=== PATIENT | female | born 1965 | race Caucasian/White ===

== ENCOUNTER 2021-01-01 14:32 | Outpatient (CLI) | payer OTHER, SELFPAY ==
--- NOTE | ~2021-01-01 | MR_ITS ---
EXAMINATION: MR knee RT wo con DATE: 01/01/2021 15:57 INDICATION: Right knee mass at the lower leg pain TECHNIQUE: Magnetic resonance imaging (MRI) of the right knee was performed without intravenous contr ast. Sequences included coronal PD-weighted FSE, coronal PD-weighted FS FSE, coronal T1-weighted FSE , sagittal T2-weighted FSE, sagittal PD-weighted FS FSE, axial PD-weighted fat saturated FSE and axia l PD-weighted FSE. COMPARISON: Right knee radiographs dated 12/19/2020 FINDINGS: Medial compartment: Medial meniscus is normal. Shallow chondral ulceration with subtle underlying cortical irregularity a t the lateral aspect of the anterior weightbearing medial femoral condyle. Remaining cartilage appear s normal. Lateral compartment: Lateral meniscus is normal. Deep chondral fissuring without degenerative subchondral changes at the p osterior medial aspect of the lateral tibial plateau. Remaining cartilage appears normal. Patellofemoral compartment: Cartilage loss appears to involve greater than 50% the cartilage thickness and with chondral surface irregularity and fissuring and with small regions of increased signal in the underlying subarticular marrow at the medial facet, apical ridge and medial side of the lateral facet. Trochlear cartilage is relatively preserved. Ligaments and tendons: Anterior and posterior cruciate ligaments are normal. There is thickening and mild increased signal a t the proximal aspect of the medial collateral ligament and fibular collateral ligament without surro unding edema consistent with mild scarring related to chronic sprains. Moderate tendinopathy and smal l partial-thickness tear at the lateral epicondylar insertion of the popliteus tendon. The extensor m echanism is normal. The visualized medial and lateral hamstring tendons as well as the iliotibial ban d are normal. Fluid: Physiologic amount of fluid in the joint space. No loose osteochondral bodies identified. Mild edema of the subcutaneous fat overlying the anterior tibial tuberosity without discrete bursal fluid collec tion. Osseous/other: Mild red marrow reexpansion in the metaphyseal regions of the distal femur and proximal tibia. No fra cture or pathologic marrow replacing process. Very small osseous excrescence along the lateral metaph yseal region of the proximal right tibia at the anterior margin of the proximal tibiofibular articula tion. This could represent an enthesophyte at the proximal footplate of the extensor digitorum longus or anterior ligament of the head of the fibula or potentially a very small osteochondroma although n o definitive cartilage cap is appreciated. Further favoring enthesophyte over osteochondroma is that there does not appear to be marrow within the majority of the excrescence as delineated on the plain radiographs. No abnormal soft tissue masses identified. IMPRESSION: 1. Moderate tendinopathy and small partial-thickness tear at the femoral insertion of the popliteus t endon. 2. Mild scarring suggestive of chronic sprains at the proximal aspect the medial and fibular collater al ligaments. 3. Mild tricompartmental osteoarthritis with small regions of high-grade chondromalacia at the patell a along the anterior weightbearing medial femoral condyle. 4. Small osseous excrescence at the proximal tibia near the anterior margin of the proximal tibiofibu lar articulation most likely small enthesophyte versus less likely a small osteochondroma. Reviewed, dictated and finalized at location A. IMPRESSION: 1. Moderate tendinopathy and small partial-thickness tear at the femoral insert ion of the popliteus tendon. 2. Mild scarring suggestive of chronic sprains at the proximal aspect the media l and fibular collateral ligaments
== END 2021-01-01 14:33 | disposition home or self-care (01) ==
PROVIDERS: PCP Family Medicine; Visit Provider Nurse Practitioner Family
DX: M22.2X1 Patellofemoral disorders, right knee (principal); R22.41 Localized swelling, mass and lump, right lower limb; M25.561 Pain in right knee; M22.2X2 Patellofemoral disorders, left knee; M76.891 Other specified enthesopathies of right lower limb, excluding foot; S86.821A Laceration of other muscle(s) and tendon(s) at lower leg level, right leg, initial encounter; M17.11 Unilateral primary osteoarthritis, right knee; M94.261 Chondromalacia, right knee; M89.9 Disorder of bone, unspecified
CPT/HCPCS: 73721

== ENCOUNTER 2021-02-04 15:26 | Outpatient (CLI) | payer OTHER, SELFPAY ==
--- NOTE | ~2021-02-04 | MM_ITS ---
EXAMINATION: MM screening [place] [facility] w [facility] HISTORY: Screening mammogram TECHNIQUE: Craniocaudal and mediolateral oblique 3-D tomosynthesis images were obtained and synthetic 2-D images were generated. CAD analysis was submitted and interpreted. COMPARISON: 01/13/2019, 01/21/2017, 06/2014 bilateral digital screening mammogram examinations BREAST PARENCHYMAL COMPOSITION: There are scattered areas of fibroglandular density. FINDINGS: There is no evidence of suspicious mass, calcification, or architectural distortion to sugg est malignancy in either breast. There has been no suspicious interval change. IMPRESSION: 1. No mammographic evidence of malignancy. 2. Recommend routine screening mammography in one year. BI-RADS Category 1: Negative Reviewed, dictated and finalized at location A.
== END 2021-02-04 15:27 | disposition home or self-care (01) ==
LOC: ANHIMG 15:30
PROVIDERS: PCP Family Medicine; Visit Provider Family Medicine
DX: Z12.31 Encounter for screening mammogram for malignant neoplasm of breast (principal)
CPT/HCPCS: 77063; 77067

== ENCOUNTER 2022-03-19 17:23 | Outpatient (CLI) | payer OTHER, SELFPAY ==
--- NOTE | ~2022-03-19 | MM_ITS ---
EXAMINATION: MM screening [facility] BI w yves HISTORY: Screening mammogram TECHNIQUE: Craniocaudal and mediolateral oblique 3-D tomosynthesis images were obtained and synthetic 2-D images were generated. CAD analysis was submitted and interpreted. COMPARISON: 02/04/2021, 01/13/2019, 01/21/2017 BREAST PARENCHYMAL COMPOSITION: There are scattered areas of fibroglandular density. FINDINGS: There is no suspicious mass, calcification, or architectural distortion to suggest malignan cy in either breast. There has been no suspicious interval change. IMPRESSION: 1. No mammographic evidence of malignancy. 2. Recommend routine screening mammography in one year. BI-RADS Category 1: Negative Reviewed, dictated and finalized at location A.
== END 2022-03-19 17:24 | disposition home or self-care (01) ==
PROVIDERS: PCP Family Medicine; Visit Provider Student in an Organized Health Care Education/Training Program
DX: Z12.31 Encounter for screening mammogram for malignant neoplasm of breast (principal)
CPT/HCPCS: 77063; 77067

== ENCOUNTER 2025-04-16 07:59 | Outpatient (CLI) | payer OTHER, SELFPAY ==
--- NOTE | ~2025-04-16 | DEXA_ITS ---
Bone Density Report Name: BERNICE PULIDO Age: 60 Sex: Female Ethnicity: White Date of : 1965 Indication: postmenopausal; screening for osteoporosis; Referring Provider: SARAH, [facility] Study: Bone densitometry was performed. Exam Date: April 16, 2025 Accession number: [id number] Bone Density: Region BMD T-score Z-score Classification AP Spine(L1, L2, L3) 1.133 1.0 2.5 Normal Femoral Neck (Left) 0.820 -0.3 1.1 Normal Total Hip (Left) 1.139 1.6 2.6 Normal Femoral Neck (Right) 0.794 -0.5 0.8 Normal Total Hip (Right) 1.092 1.2 2.2 Normal Total Hip Mean 1.116 1.4 2.4 Normal World Health Organization criteria for BMD impression classify patients as: Normal (T-score at or above -1.0), Osteopenia (T-score between -1.0 and -2.5), or Osteoporosis (T-score at or below -2.5). 10-year Fracture Risk: FRAX not reported because: All T-scores for Spine Total, Hip Total, Femoral Neck at or above -1.0 Clinical Information Provided by Patient: Has used the following medications: Vitamin D Patient maximum height was 60.5 Menopause Age: 44 No regular weight bearing exercise Drinks caffeinated beverages Onset of menses at age 12 Number of children 2 Missed period for more than 6 months in a row Impression: The patient has normal bone mass. Discussion: BONE DENSITY IS ABOVE THE MINIMUM DESIRABLE LEVEL AT ALL SKELETAL SITES TESTED. This patient?s bone mineral density is above the minimum desirable level (T-score -1.0 or better) at all sites measured. The patient should follow a healthful lifestyle (good nutrition with adequate calcium and vitamin D, and appropriate weight-bearing exercise). Follow-Up: Consider repeating this study in 5 years or sooner if there is some new clinical indication. Reported by: KAI on 04/16/2025 8:56:00 AM. Reviewed, dictated and finalized at location A.
--- OUTSIDE RECORDS SUMMARY | 2025-04-16 08:03 | XMS_ITS | Clinical Summary ---
Author Organization [facility] Address [address] [place] [address] Care Team Providers Care Facilities Painter Name Role Phone Matilde Taylor RN Primary Care Provider Un available Source Comments [facility],non-owned Affiliates and Associated Physician Practices is amultiple site organization consisting of ambulatory clinics and hospital sitesin [place], [place], [place] and [place]. This disclosure is being madepursuant to the Care Everywhere program and may not contain all information available regarding this patient. Last updated 18.[facility] Allergies No known active allergies Medications * Be aware that medications may not be up to date on this document. Alwaysverify current medications with the patient. SERTRALINE HCL PO Ac tive ARIPiprazole (ABILIFY PO) Active DICLOFENAC PO Active Zolpidem Tartrate (AMBIEN PO) Active OMEPRAZOLE PO Active Social History Tobacco Use Types Packs/Day Years Used Date Smoking Tobacco: Never Smokeless Tobacco: Never Tobacco Cessation:Counseling Given: No Alcohol Use Standard Drinks/Week Comments No 0 (1 standard drink = 0.6 oz pur e alcohol) Comments No Sex and Gender Information Value Date Recorded Sex Assigned at Not on file Legal Sex Female 2:29 PM CDT Gender Identity Not on file Sexual Orientation Not on file Last Filed Vital Signs Vital Sign Reading Time Taken Comments Blood Pressure 128/80 07/11/2017 11:58 AM CDT Pulse 94 07/11/2017 11:58 AM CDT Temperature 36.8 C (98.3 F) 07/11/2017 11:58 AM CDT Respiratory Rate 20 07/11/2017 11:58 AM CDT Oxygen Saturation 95% 07/11/2017 11:58 AM CDT Inhaled Oxygen Concentration - - Weight 99.8 kg (220 lb) 07/11/2017 11:58 AM CDT Height 154.9 cm (5' 1) 07/11/2017 11:58 AM CDT Body Mass Index 41.57 07/11/2017 11:58 AM CDT Plan of Treatment Health Maintenance Due Date Last Done Comments COLOGUARD (AGES 45-75) - COL ON CA SCREENING 1964 COLON MONITORING 1964 COLONOSCOPY - COLON CA SCREENING 1964 CT COLONOGRAPHY - COLON CA SCREENING 1964 Colorectal Cancer Screening 1964 FIT - COLON CA SCREENING 1964 FLEX SIG - COLON CA SCREENING 1964 LIPID TESTING 1964 MAMMOGRAM 1964 HIV SCREENING 1979 HEPATITIS C SCREENING 04/03/1982 DTAP/TDAP/TD VACCINES (1 - Tdap) 1983 PAP SMEAR 1985 PNEUMOCOCCAL VACCINE 50+ (1 of 1 - PCV) 2014 ZOSTER VACCINE (1 of 2) 2014 SCREENING FOR DIABETES 07/11/2017 Respiratory Syncytial Virus (RSV) Vaccine Pt: or over 60 yrs (1 - Risk 60-74 years 1-dose series) 2024 COVID-19 VACCINE (1 - 2023-2 5 season) 2024 DEPRESSION SCREENING 10/11/2024 INFLUENZA VACCINE (Season Ended) 2025 HEPATITIS B VACCINE Aged Out No longe r eligible based on patient's age to complete this topic HIB VACCINE Aged Out No longer eligi ble based on patient's age to complete this topic HPV VACCINE Aged Out No longer eligi ble based on patient's age to complete this topic MENINGOCOCCAL (Group B) VACC INE SHARED DECISION-MAKING Aged Out No longer eligibl e based on patient's age to complete this topic MENINGOCOCCAL GROUPS A/C/Y/W VACCINE Aged Out No longer eligible b ased on patient's age to complete this topic Insurance [employer] Care Teams Facilities Painter Relationship Specialty Start Date End Date Matilde Taylor, RN PCP - General 07/11/17
--- OUTSIDE RECORDS SUMMARY | 2025-04-16 08:03 | XMS_ITS | Encounter Summary ---
Author Organization [facility] Address [address] [place] [address] Care Team Providers Care Ditching Machine Engineer Name Role Phone Homer Segura MD Primary Care Provider [phone] Encounter Details Date Type Department Care Team (Late st Contact Info) Description 09/24/2016 Orders Only [facility] ProviderWillie MD [address] [place] [id number] Social History Tobacco Use Types Packs/Day Years Used Date Smoking Tobacco: Never Assessed Comments Unknown Sex and Gender Information Value Date Recorded Sex Assigned at Not on file 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 Historical Provider [facility] LEEANNE CHAVES Final Result documented in this encounter Visit Diagnoses Not on filedocumented in this encounter Care Teams Ditching Machine Engineer Relationship Specialty Start Date End Date Homer Segura MD [address] [place] [address] [place] [address] PCP - General Family Medicine 12/24/23 documented as of this encounter
--- OUTSIDE RECORDS SUMMARY | 2025-04-16 08:03 | XMS_ITS ---
Author Organization Unknown Medications Medication Instructions Effective Dates (start - stop) Status - - Compl eted aripiprazole 2 MG Oral Tablet 2023-12-19 00:00:00Z - Completed aripiprazole 2 MG Oral Tablet 2023-07-01 00:00:00Z - Completed ergocalciferol 1.25 MG Oral Capsule - Completed aripiprazole 2 MG Oral Tablet 2023-08-07 00:00:00Z - Completed ergocalciferol 1.25 MG Oral Capsule - Completed zolpidem tartrate 10 MG Oral Tablet - Completed eszopiclone 2 MG Oral Tablet [id number] 0:00:00Z - Completed diclofenac sodium 75 MG Ivda yed Release Oral Tablet - Completed allopurinol 100 MG Oral Tablet 2023-05-19 T00:00:00Z - Completed icosapent ethyl 1000 MG Oral Capsule [Vascepa] - Completed aripiprazole 2 MG Oral Tablet 2023-06-06 00:00:00Z - Completed sertraline 100 MG Oral Tablet 2024-02-28 00:00:00Z - Completed - - Compl eted nystatin 100 UNT/MG Topical Powder [Nystop] - Completed empagliflozin 25 MG Oral Tab let [Jardiance] - Completed aripiprazole 2 MG Oral Tablet 2023-10-25 00:00:00Z - Completed cyclobenzaprine hydrochlorid e 10 MG Oral Tablet - Completed lisinopril 2.5 MG Oral Tablet 2023-11-07 00:00:00Z - Completed diclofenac sodium 75 MG Vida yed Release Oral Tablet - Completed 3 ML semaglutide 1.34 MG/ML Pen Injector [Ozempic] - Completed diclofenac sodium 75 MG Vida yed Release Oral Tablet - Completed - - Compl eted sitagliptin 100 MG Oral Tabl et [Januvia] - Completed pantoprazole 40 MG Delayed R elease Oral Tablet - Completed diclofenac sodium 75 MG Vida yed Release Oral Tablet - Completed zolpidem tartrate 10 MG Oral Tablet - Completed allopurinol 100 MG Oral Tablet 2023-11-07 T00:00:00Z - Completed lisinopril 2.5 MG Oral Tablet 2023-11-08 00:00:00Z - Completed - - Compl eted allopurinol 100 MG Oral Tablet 2023-11-08 T00:00:00Z - Completed empagliflozin 25 MG Oral Tab let [Jardiance] - Completed diclofenac sodium 75 MG Vida yed Release Oral Tablet - Completed allopurinol 100 MG Oral Tablet 2024-02-06 T00:00:00Z - Completed icosapent ethyl 1000 MG Oral Capsule [Vascepa] - Completed aripiprazole 2 MG Oral Tablet 2024-04-21 00:00:00Z - Completed ezetimibe 10 MG Oral Tablet [id number] :00:00Z - Completed gabapentin 300 MG Oral Capsule 2024 T00:00:00Z - Completed ezetimibe 10 MG Oral Tablet [id number] :00:00Z - Completed diclofenac sodium 75 MG Vida yed Release Oral Tablet - Completed nystatin 100 UNT/MG Topical Powder 00:00:00Z - Completed gabapentin 300 MG Oral Capsule 2024-01-06 T00:00:00Z - Completed rosuvastatin calcium 20 MG O ral Tablet - Completed rosuvastatin calcium 20 MG O ral Tablet - Completed levocetirizine dihydrochlori de 5 MG Oral Tablet - Completed nystatin 100 UNT/MG Topical Powder [Nystop] - Completed rosuvastatin calcium 20 MG O ral Tablet - Completed zolpidem tartrate 10 MG Oral Tablet - Completed sertraline 100 MG Oral Tablet 2024-03-21 00:00:00Z - Completed - - Compl eted sertraline 100 MG Oral Tablet 2023-07-08 00:00:00Z - Completed lisinopril 2.5 MG Oral Tablet 2023-08-13 00:00:00Z - Completed ezetimibe 10 MG Oral Tablet [id number] :00:00Z - Completed sertraline 100 MG Oral Tablet 2024-01-29 00:00:00Z - Completed levocetirizine dihydrochlori de 5 MG Oral Tablet - Completed amoxicillin 875 MG / clavula juve 125 MG Oral Tablet - Completed zolpidem tartrate 10 MG Oral Tablet - Completed diclofenac sodium 75 MG Vida yed Release Oral Tablet - Completed nystatin 100 UNT/MG Topical Powder 00:00:00Z - Completed gabapentin 100 MG Oral Capsule 2023-12-19 T00:00:00Z - Completed aripiprazole 2 MG Oral Tablet 2024-02-20 00:00:00Z - Completed - - Compl eted pantoprazole 40 MG Delayed R elease Oral Tablet - Completed ergocalciferol 1.25 MG Oral Capsule - Completed aripiprazole 2 MG Oral Tablet 2023-11-19 00:00:00Z - Completed rosuvastatin calcium 20 MG O ral Tablet - Completed pantoprazole 40 MG Delayed R elease Oral Tablet - Completed - - Compl eted sertraline 100 MG Oral Tablet 2023-10-31 00:00:00Z - Completed diclofenac sodium 75 MG Vida yed Release Oral Tablet - Completed aripiprazole 2 MG Oral Tablet 2024-03-21 00:00:00Z - Completed zolpidem tartrate 10 MG Oral Tablet - Completed diclofenac sodium 75 MG Vida yed Release Oral Tablet - Completed nystatin 100 UNT/MG Topical Powder [Nystop] - Completed aripiprazole 2 MG Oral Tablet 2023-09-04 00:00:00Z - Completed sitagliptin 100 MG Oral Tabl et [Januvia] - Completed prednisone 20 MG Oral Tablet [id number] 0:00:00Z - Completed pantoprazole 40 MG Delayed R elease Oral Tablet - Completed ezetimibe 10 MG Oral Tablet [id number] :00:00Z - Completed methocarbamol 500 MG Oral Tablet 00:00:00Z - Completed sitagliptin 100 MG Oral Tabl et [Januvia] - Completed lisinopril 2.5 MG Oral Tablet 2024-05-01 00:00:00Z - Completed sertraline 100 MG Oral Tablet 2024-04-21 00:00:00Z - Completed empagliflozin 25 MG Oral Tab let [Jardiance] - Completed icosapent ethyl 1000 MG Oral Capsule [Vascepa] - Completed aripiprazole 2 MG Oral Tablet 2023-07-03 00:00:00Z - Completed - - Compl eted aripiprazole 2 MG Oral Tablet 2023-09-29 00:00:00Z - Completed aripiprazole 2 MG Oral Tablet 2024-01-23 00:00:00Z - Completed lisinopril 2.5 MG Oral Tablet 2024-02-06 00:00:00Z - Completed nystatin 100 UNT/MG Topical Powder [Nystop] - Completed levocetirizine dihydrochlori de 5 MG Oral Tablet - Completed aripiprazole 2 MG Oral Tablet 2023-08-05 00:00:00Z - Completed nystatin [id number] UNT/ML Topic al Cream - Completed sertraline 100 MG Oral Tablet 2023-10-02 00:00:00Z - Completed diclofenac sodium 75 MG Vida yed Release Oral Tablet - Completed pantoprazole 40 MG Delayed R elease Oral Tablet - Completed lisinopril 2.5 MG Oral Tablet 2023-05-19 00:00:00Z - Completed diclofenac sodium 75 MG Vida yed Release Oral Tablet - Completed Patient Care team information Name Category Status Period Participants - - Proposed period not known -
--- OUTSIDE RECORDS SUMMARY | 2025-04-16 08:03 | XMS_ITS | Clinical Summary ---
Author Organization [facility] Address [address] [place] [address] Care Team Providers Care Brand Advisor Name Role Phone Homer Segura MD Primary Care Provider [phone] Allergies No known active allergies Medications methocarbamoL (ROBAXIN) 500 mg tablet Take 1 tablet (500 mg total) by mouth 2 (two) times a day 10 tablet 12/24/2023 Active Active Problems No known active problems Social History Tobacco Use Types Packs/Day Years Used Date Smoking Tobacco: Never Assessed Personal Safety Answer Date Recorded Have you ever been in or are you currently in a harmful physical or emotional relationship or is someone making you feel afraid or unsafe? 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 Gender Identity Not on file Sexual Orientation Not on file Last Filed Vital Signs Vital Sign Reading Time Taken Comments Blood Pressure 99/56 12/24/2023 1:35 PM CDT Pulse 61 12/24/2023 1:35 PM CDT Temperature 36.4 C (97.5 F) 12/24/2023 1:35 PM CDT Respiratory Rate 18 12/24/2023 1:35 PM CDT Oxygen Saturation 99% 12/24/2023 1:35 PM CDT Inhaled Oxygen Concentration - - Weight 94 kg (207 lb 3.7 oz) 12/24/2023 1:35 PM CDT Height 152.4 cm (5') 12/24/2023 1:35 PM CDT Body Mass Index 40.47 12/24/2023 1:35 PM CDT Plan of Treatment Health Maintenance Due Date Last Done Comments Cervical Cancer Screening 1964 Colon Cancer Screening-Colonoscopy 1964 Depression Screening 1964 Hepatitis C Screening 1964 Hepatitis B Screening 1982 Regular Well Visit/Exam 18-64 1982 Zoster Vaccine (1 of 2) 2014 Breast Cancer Screening-Mammogram 03/20/2023 03/20/2022, 02/04/2021 Covid-19 Vaccine ( season) 2024 08/15/2021, 12/30/2020, 11/27/2020 Influenza Vaccine (#1) 2025 , 07/20/2019, 07/11/2016, Additional history exists DTaP/Tdap/Td Vaccine (3 - Td or Tdap) 08/24/2033 08/24/2023, 01/23/2013 Pneumococcal vaccine <65 Aged Out No longer eligible based on patient's age to complete this topic Insurance [facility] [id number] Care Teams Brand Advisor Relationship Specialty Start Date End Date Homer Segura MD [address] [place] [address] PCP - General Family Medicine 12/24/23
--- OUTSIDE RECORDS SUMMARY | 2025-04-16 08:03 | XMS_ITS | Data Portability ---
Author Organization [place] [facility] [employer], Main Office Address [address] [place] [address] Care Team Providers Care Wire Spiral Binder Name Role Phone HOMER SEGURA Primary Care Provider HOMER SEGURA Referring Provider HOMER SEGURA Primary Care Provider [phone] Assessment Encounter Date Assessment Date Assessment LastModified by Organization Details LastModified Time 12/27/2024 12/27/2024 59 yo F with - MICROSCOPIC HEMATURIA, new - CHRONIC LOW BACK PAIN - DM II - ANEMIA - DM NEUROPATHY - FIBROMYALGIA - POLYMYALGIA RHEUMATICA - POLYARTHROPATHY - GOUT - PLANTER FASCITIS - HTN (For DM protection) - HTG - HLD - GERD - HIATAL HERNIA - IBS-D - DEPRESSION - INSOMNIA - VIT D DEFICIENCY - OBESITY III - H/O VIT B12 DEFICIENCY - H/O CHOLECYSTECTOMY (1997) - H/O PUD HbA1C: 6.1(05/19/18) - 6.3(09/21/18) - 4.9(01/11/19) - 6.3(06/27/19) - 6.5(01/26/20) - 6.7(05/30/20) - 7.4(02/03/21) - 6.7(05/02/21) - 6.9(08/06/21) - 6.6(11/18/21) - 6.1(01/30/22) - 6.3(07/16/22) - 6.5(10/29/22) - 6.7(03/15/23) - 6.7(06/16/23) - 6.5(08/24/23) - 6.1(03/02/24) - 5.7(08/28/24) Annual labs: 08/28/24. X-ray foot: 05/09/24. Annual labs: 08/24/23. Annual labs: 07/16/22. Annual labs, KARLENE, ESR: 08/06/21. Annual labs: 07/24/20. Annual labs: 06/27/19. RA work up: 05/19/18. Annual labs: 05/19/18. Sleep study: 2-3 yrs ago, Neg as per pt. Wt: 229(06/28/18) - 228(08/09/18) - 225(09/21/18) - 224(11/22/18) [Stopped] Wt: 231(01/11/19) - 230(03/13/19) [Stopped] D/w pt in detail about her conditions, recent labs & imagines and further plan of care. All meds verified with pt. Meds as directed. Heat pack as directed prn. Advised pt to avoid any Aspirin/NSAIDs due to her PUD. Diet and exercise explained in detail. Pt has tried Phentermine and got s/e from it. Educated about different wt loss options for her. F/u with Hemat as per schedule. F/u with Rheumat as per schedule. Cont f/u with Ortho as per schedule. Cont f/u with Hand surgeon at [place] as per schedule. Cont f/u with Psych at [place] as per schedule. Cont f/u with Gyne at [place] as per schedule. Cont f/u with Supervisor Ticket Sales at as per schedule. Cont f/u with GI as per schedule. Cont f/u with Optho as per schedule. Pt has seen Wt loss clinic in the past. Advised pt to do more work up for Anemia/refer to Hemat; but pt declined. Advised pt to refer to Wt loss clinic; but pt declined. Pt's insurance did not approve Livalo. Pt got s/e from Lyrica, Metformin, Phentermine, Rybelsus, Trulicity in the past. HM: WWE - 09/03, normal as per pt. Cont f/u with Gyne as per schedule. Mammo - 2022, normal. Ordered by her Gyne. Ordered again. DEXA - Never. Ordered again. EGD & Colonoscopy - 2021, ulcer ++. Cont f/u with GI as per schedule. Tdap - 08/24/23. Flu - 08/03. Pt gets at her work. Shingrix - At pharmacy/HD. F/u in 3 months. A1c in 04/04. Annual labs in 09/04. [email or web address] Not available 12/27/2024 09:34:09 03/29/2025 03/29/2025 59 yo F with - LUMBAR SPONDYLOSIS - CHRONIC LOW BACK PAIN - FIBROMYALGIA - POLYMYALGIA RHEUMATICA - POLYARTHROPATHY - GOUT - PLANTER FASCITIS - HTN (For DM protection) - HTG - HLD - DM II - DM NEUROPATHY - ANEMIA - GERD - HIATAL HERNIA - IBS-D - DEPRESSION - INSOMNIA - VIT D DEFICIENCY - MICROSCOPIC HEMATURIA - OBESITY III - H/O VIT B12 DEFICIENCY - H/O CHOLECYSTECTOMY (1997) - H/O PUD HbA1C: 6.1(05/19/18) - 6.3(09/21/18) - 4.9(01/11/19) - 6.3(06/27/19) - 6.5(01/26/20) - 6.7(05/30/20) - 7.4(02/03/21) - 6.7(05/02/21) - 6.9(08/06/21) - 6.6(11/18/21) - 6.1(01/30/22) - 6.3(07/16/22) - 6.5(10/29/22) - 6.7(03/15/23) - 6.7(06/16/23) - 6.5(08/24/23) - 6.1(03/02/24) - 5.7(08/28/24) - 5.5(03/27/25) Annual labs: 08/28/24. X-ray foot: 05/09/24. Annual labs: 08/24/23. Annual labs: 07/16/22. Annual labs, KARLENE, ESR: 08/06/21. Annual labs: 07/24/20. Annual labs: 06/27/19. RA work up: 05/19/18. Annual labs: 05/19/18. Sleep study: 2-3 yrs ago, Neg as per pt. Wt: 229(06/28/18) - 228(08/09/18) - 225(09/21/18) - 224(11/22/18) [Stopped] Wt: 231(01/11/19) - 230(03/13/19) [Stopped] D/w pt in detail about her conditions, recent labs & imagines and further plan of care. All meds verified with pt. Meds as directed. Cont heat pack as directed prn. Advised pt to avoid any Aspirin/NSAIDs due to her PUD. Diet and exercise explained in detail. Pt has tried Phentermine and got s/e from it. Educated about different wt loss options for her. F/u with Hemat as per schedule. F/u with Rheumat as per schedule. Cont f/u with Pain clinic at [place] as per schedule. Cont f/u with Ortho as per schedule. Cont f/u with Hand surgeon at [place] as per schedule. Cont f/u with Psych at [place] as per schedule. Cont f/u with Gyne at [place] as per schedule. Cont f/u with Supervisor [employer] Sales at as per schedule. Cont f/u with GI as per schedule. Cont f/u with Optho as per schedule. Pt has seen Wt loss clinic in the past. Advised pt to do more work up for Anemia/refer to Hemat; but pt declined. Advised pt to refer to Wt loss clinic; but pt declined. Pt's insurance did not approve Livalo. Pt got s/e from Lyrica, Metformin, Phentermine, Rybelsus, Trulicity in the past. HM: WWE - 09/03, normal as per pt. Cont f/u with Gyne as per schedule. Mammo - 2022, normal. Ordered by her Gyne. Ordered again. DEXA - Never. Ordered again. EGD & Colonoscopy - 2021, ulcer ++. Cont f/u with GI as per schedule. Tdap - 08/24/23. Flu - 08/03. Pt gets at her work. Shingrix - At pharmacy/HD. F/u in 3-4 months. Annual labs in 09/04. [email or web address] Not available 03/29/2025 09:31:31 Plan of Treatment Reminders Order Date Submit Date Provider Last Modified By Organization Details Last Modified Time Details Appointments Any 15 2024 08:00A M Homer Segura MD Not available Not available Not available Lab culture, urine 2024 025 [facility] (Lab), [address] [place], [address], 10/19/2024 10:41:34 Referral pain managemen t referral - Please call patient to schedule an appointme nt. Thank you. 2024 025 [facility], [address], [place], [address], 04/02/2025 10:12:56 Procedures None recorded. Surgeries None recorded. Imaging XR, lumbosacr al spine, 4 or more view 2024 025 [facility], [address] [place], [address], 02/14/2025 08:15:19 XR, sacroilia c joint(s), 3 or more view 2024 025 [facility], [address] [place], [address], 02/14/2025 08:14:35 Medication Orders tizanidin e 4 mg tablet 2024 025 [facility]25792, [address], [place], [id number], 03/29/2025 09:23:42 levocetir izine 5 mg tablet 2024 025 [facility] #46719, [address], [place], [id number], 03/29/2025 09:23:42 Xifaxan 550 mg tablet 2024 025 [facility] #51803, [address], [place], [id number], 03/29/2025 09:29:46 gabapenti n 300 mg capsule 2024 025 [facility] #42609, [address], [place], [id number], 03/29/2025 09:23:41 allopurin ol 100 mg tablet 2024 [facility] #39936, [address], [place], [id number], 03/29/2025 09:23:46 ezetimibe 10 mg tablet 2024 [facility] #81044, [address], [place], [id number], 03/29/2025 09:23:43 rosuvasta tin 20 mg tablet 2024 025 [facility] #45908, [address], [place], [id number], 03/29/2025 09:23:44 Jardiance 25 mg tablet 2024 025 [facility] #80633, [address], [place], [id number], 03/29/2025 09:23:43 Mounjaro 15 mg/0.5 mL subcutane ous pen injector 2024 025 [facility] #93860, [address], [place], [id number], 03/29/2025 09:23:44 pantopraz ole 40 mg tablet,de layed release 2024 [facility] #53528, [address], [place], [id number], 03/29/2025 09:23:44 tizanidin e 4 mg tablet [email or web address] [facility]77559, [address], [place], [id number], 02/27/2025 12:19:32 lidocaine 5 % topical patch 2024 [facility] #45229, [address], [place], [id number], 02/27/2025 12:19:03 gabapenti n 300 mg capsule 2024 [facility] #40660, [address], [place], [id number], 02/27/2025 12:18:59 tizanidin e 4 mg tablet 2024 [facility] #12794, [address], [place], [id number], 02/13/2025 15:50:26 tizanidin e 2 mg tablet [address] [facility] #14563, [address], [place], [id number], 02/13/2025 15:59:11 levocetir izine 5 mg tablet 2024 025 [facility] #19727, [address], [place], [id number], 12/27/2024 09:26:57 gabapenti n 300 mg capsule 2024 [facility] #83265, [address], [place], [id number], 12/27/2024 09:27:29 allopurin ol 100 mg tablet 2024 [facility] #78308, [address], [place], [id number], 12/27/2024 09:26:56 ezetimibe 10 mg tablet 2024 [facility] #86570, [address], [place], [id number], 12/27/2024 09:26:57 rosuvasta tin 20 mg tablet 2024 [facility] #79208, [address], [place], [id number], 12/27/2024 09:26:57 Jardiance 25 mg tablet 2024 [facility] #43017, [address], [place], [id number], 12/27/2024 09:26:56 Mounjaro 15 mg/0.5 mL subcutane ous pen injector 2024 025 [email or web address] [facility] #90376, [address], [place], [id number], 12/27/2024 09:33:35 pantopraz ole 40 mg tablet,de layed release 2024 [facility] #96794, [address], [place], [id number], 12/27/2024 09:26:58 Patient TargetsNo targets recorded. Patient Instructions Encounter Date Encounter Id Patient Instructions Last Modified By Organization Details Last Modified Time 10/18/2024 [id number] 1. We will send her to the lab to undergo a microscopic urinalysis 2. If she has 3 or more red blood cells per high-powered field then she is considered possible increased risk. 3. If she has greater than 10 red blood cells then she has higher risk [email or web address] Not available 10/18/2024 12:27:52 12/27/2024 [id number] When You Want to Lose Weight: Care Instructions [email or web address] Not available 12/27/2024 09:26:47 03/29/2025 [id number] When You Want to Lose Weight: Care Instructions [email or web address] Not available 03/29/2025 09:23:33 Reason for Referral Pain Management Referral for Lumbar spondylosis Chronic low back pain, lumbar spondylosis, PT done last year. Please call patient to schedule an appointment. Thank you. Referring Physician: Homer Segura, Family Medicine, Encounter Date: 02/27/2025 Results Created Date Observation Date Name Description Value Unit Range Abnormal Flag Note LastModifiedBy Organization Detail LastModifiedTime 03/27/2003/28/2025 HEMOG LOBIN A1C hemoglobin A1C 5.5 %_of_ total _HGB <5.7 normal For the purpo se of adal deal for the prese nce of diabe sandy: <5.7% Consi stent with the absen ce of diabe sandy 5.7-6 .4% Consi stent with incre ased risk for diabe sandy (pred iabet es) > or =6.5% Consi stent with diabe sandy This assay resul t is consi stent with a decre ased risk of diabe sandy. Curre ntly, no conse nsus exist s sophie milner use of hemog lobin A1c for diagn osis of diabe sandy in child toy[place]. Accor ding to Ameri can Diabe sandy Assoc iatio n (ADA) guide lines , hemog lobin A1c <7.0% repre sents optim al contr ol in non-p regna nt diabe tic patie nts. Diffe rent metri cs may apply to speci fic patie nt popul ation s. Stand ards of Medic al Care in Diabe sandy(A DA). Not Available [facility] [address], [place], [address], 03/28/2025 02:16:30 02/15/20 25 XR, sacro iliac joint (s), 3 or more view No observ ation record ed. [email or web address] [facility] [address] [place], [address], 02/27/2025 12:10:36 02/15/20 25 02/13/2025 XR, lumbo sacra l spine , 4 or more view No observ ation record ed. [facility] [address] [place], [address], 02/27/2025 12:10:37 Result Notes None recorded. Problems Name Problem SNOMED Code Status Onset Date Resolution Date Notes Provider Name and Address Organization Details Recorded Time COVID-19 178298140 Active 2022 Homer Segura MD [address], [place], [address] , [employer] 3 10:00:45 Sinusitis 37169480 Active 2022 Homer Segura MD [address], [place], [address] , [employer] 3 10:10:56 Allergic rhinitis 99059350 Active 2022 Homer Segura MD [address], [place], [address] , [employer] 3 10:15:51 History of peptic ulcer 751779896 Active 2022 Homer Segura MD [address], [place], [address] , [place] [facility] 3 10:33:17 Diabetic periphera l neuropath y 244087360 Active 2023 Homer Segura MD [address] [facility], [facility] [address], [place], [address] , [place] [facility] 4 09:21:02 Chronic low back pain 677997302 Active 2023 Homer Segura MD [address] [facility], [facility] [address], [place], [address] , [place] [facility] 5 15:45:53 Sciatica 62192442 Active 2023 BALTAZAR Rucker [address] [facility], [address] [address], [place], [address] , [place] [facility] 4 14:44:56 Bilateral wrist pain 50427153593 702534 Active 2023 Homer Segura MD [address] [facility], [facility] [address], [place], [address] , [place] [facility] 4 17:39:38 Anxiety 29927297 Active 2023 Dorinda krishna, [place] [facility] 4 15:11:12 Arthritis 7319760 Active 2023 Dorinda krishna, [place] [facility] 4 15:11:31 Bowel problem 500124656 Active 2023 Dorinda krishna, [place] [facility] 4 15:11:41 Diabetes mellitus 17137954 Active 2023 Dorinda krishna, [place] [facility] 4 15:11:53 Ear problem 672997318 Active 2023 Dorinda krishna, [place] [facility] 4 15:12:03 Disorder of eye 446663098 Active 2023 Dorinda krishna, [place] [facility] 4 15:12:11 Pain of left heel 37255868247 42014 Active 2023 Brett Reese DPM [address], [place], [address] , [facility] 4 10:38:56 Plantar fasciitis of left foot 12541215284 344893 Active 2023 Brett Reese DPM [address], [address], [place], [address] , [facility] 4 10:39:06 Plantar fasciitis of right foot 84653771136 549331 Active 2023 Brett Reese DPM [address], [employer], [place], [address] , [facility] 4 10:40:32 Lip swelling 813399386 Active 2023 Homer Segura MD [address], [employer], [place], [address] , [facility] 4 09:41:15 Itching of skin 479423523 Active 2023 Homer Segura MD [address], [address], [address] , [facility] 4 09:41:33 Walking disabilit y 622431733 Active 2023 Homer Segura MD [address], [employer], [place], [address] , [facility] 4 09:59:50 Microscop ic hematuria 430330981 Active 2023 Homer Segura MD [address] [place], [address] , [facility] 4 10:20:14 Urinary symptoms 419373830 Active 2024 CARISSA Garcia, [facility] 5 11:47:10 Acute urinary tract infection 645242219 Active 2024 Alyse Rick CMA null, [place] - [facility] 5 13:33:23 Low back pain 271576866 Active 2024 Homer Segura MD [address], [address], [place], [address] , [facility] 5 15:47:33 Contusion of trunk 23790604 Active 2024 Homer Segura MD [address], [place], [address] , [facility] 5 15:49:57 Body mass index 30+ - obesity 827324814 Active 2024 Homer Segura MD [address], [place], [address] , [facility] 5 15:58:26 Type 2 diabetes mellitus 78627679 Active 2024 Homer Segura MD [address], [place], [address] , [facility] 5 15:59:00 Lumbar spondylos is 876054966 Active 2024 Homer Segura MD [address], [place], [address] , [facility] 5 12:13:08 Bilateral sacroilii tis Active 2024 Homer Segura MD [address], [place], [address] , [facility] 5 12:26:06 Irritable bowel syndrome 86657912 Active 2019 Not Available [facility] 3 04:49:25 Diarrheal disorder 713627136 Completed Not Available [facility] 3 04:49:25 Abnormal weight gain 801753403 Completed Not Available [facility] 3 04:49:25 Indigesti on 714075496 Completed Not Available [facility] 3 04:49:25 Gouty arthropat hy 512863805 Active 2017 Not Available [facility] 3 04:49:25 Irritable bowel syndrome with diarrhea 568355595 Active 2017 Homer Segura MD [address] [facility], [facility] [address], [place], [address] , [facility] 5 09:29:13 Plantar fasciitis 873383468 Active 2017 Not Available [facility] 3 04:49:25 Fibromyal letty 489776467 Active 2017 Not Available [facility] 3 04:49:25 Fluid level behind tympanic membrane Completed 201705/31/2018 Not Available [facility] 3 04:49:25 Ankle pain 862550060 Completed Not Available [facility] 3 04:49:25 Lateral femoral cutaneous neuralgia 314810703 Completed Not Available [facility] 3 04:49:26 Gastroeso phageal reflux disease without esophagit is 614948641 Active 2021 Not Available [facility] 3 04:49:26 Anemia 849508381 Active 2017 Not Available [facility] 3 04:49:26 Pain in calf 995156241 Completed Not Available [facility] 3 04:49:26 Type 2 diabetes mellitus without complicat ion 210949173 Active 2019 Not Available [facility] 3 04:49:26 Vitamin D deficienc y 34885331 Active 2017 Not Available [facility] 3 04:49:26 Depressiv e disorder 62116622 Active Not Available [facility] 3 04:49:26 Polyarthr opathy 42132722 Active 2017 Not Available [facility] 3 04:49:26 Lesion of ulnar nerve 704992231 Active Not Available [facility] 3 04:49:26 Seasonal allergic rhinitis 252180650 Active 2018 Not Available [facility] 3 04:49:27 Sinusitis 54009677 Completed Homer Segura MD [address] [facility], [address], [place], [address] , [facility] 3 10:10:56 Hiatal hernia with gastroeso phageal reflux 370009846 Active 2017 Not Available [facility] 3 04:49:27 Hypertens elvis disorder 03242190 Active 2020 Not Available [facility] 3 04:49:27 Chronic sinusitis 76986847 Completed Not Available [facility] 3 04:49:27 Hematoche torsten 094451426 Completed Not Available [facility] 3 04:49:27 Obesity 092399031 Active Not Available [facility] 3 04:49:27 History of cholecyst ectomy 233663782 Active 2018 Not Available [facility] 3 04:49:28 Medial epicondyl itis 27377943 Completed Not Available [facility] 3 04:49:28 Hyperlipi demia 26408921 Active Not Available [facility] 3 04:49:28 Carpal tunnel syndrome 94317522 Active Not Available [facility] 3 04:49:28 Pain of joint 85836209 Completed Not Available [facility] 3 04:49:28 Vitamin B12 deficienc y (non anemic) 03574328 Active 2018 Not Available [facility] 3 04:49:28 Polymyalg ia rheumatic a 62204246 Active 2017 Not Available [facility] 3 04:49:29 Muscle pain 92808371 Completed Not Available [facility] 3 04:49:29 Prediabet es 728788022 Completed 201706/03/2020 Not Available [facility] 3 04:49:29 Greater trochante mellissa pain syndrome 5153504 Completed Not Available [facility] 3 04:49:29 Hyperglyc emia 99380393 Completed Not Available [facility] 3 04:49:29 Fatigue 57107892 Completed Not Available [facility] 3 04:49:30 Meralgia paresthet ica 77299455 Completed Not Available [facility] 04:49:30 Pain in limb 70534990 Completed Not Available [facility] 04:49:30 Notes:FEMALE PROBLEM/INFECTI ONS Problem Notes None recorded. Procedures Surgical History Date Name Laterality Status Provider Name and Address Organization Details Recorded Time 05/11/20 24 Plantar Fascia Injection Left Foot completed Brett Reese DPM [address], [place], [address], [facility] 05/15/2024 10:39:45 05/01/20 24 Cortisone Injection Small Joint-Left completed Ortiz Hanley DPM [address], [address], [place], [address], [facility] 05/02/2024 09:11:18 05/01/20 24 Unna boot - LE edema completed Ortiz Hanley DPM [address], [place], [address], [facility] 05/02/2024 09:11:12 04/21/20 24 Trigger Point Injection completed Ortiz Hanley DPM [address], [place], [address], [facility] 04/21/2024 11:51:35 04/21/20 24 Strapping Foot & Ankle completed Ortiz Hanley DPM [address], [place], [address], [facility] 04/21/2024 11:54:05 06/10/20 22 extraction of wisdom tooth completed Not Available [facility] 12/09/2022 04:42:13 colonoscopy completed Not Available [facility] 12/09/2022 04:42:13 endometrial ablation completed Not Available [facility] 12/09/2022 04:42:13 section completed Not Available [facility] 12/09/2022 04:42:13 Kidney/Bladder Surgery completed Not Available [facility] 12/09/2022 04:42:13 Tonsillectomy completed Not Available [facility] 12/09/2022 04:42:13 Imaging Results None recorded. Procedure Notes None recorded. Medical Equipment None Reported. Allergies Allergen ID Allergen Name Allergen Category Reaction Reaction Severity Criticality Documentation Date Start Date Code Code System Note Provider Name and Address Organization Details Recorded Time 7237 metformin medicatio n Not available Not available Not available 12/09/2022 6809 RxNorm Other react ions and sever ities : 'Adve rse react ion to subst ance - Sever e'. Homer Segura MD [address] [facility], [facility] [address], [place], [address], [facility] 4 09:55:57 Medications Name Sig Start Date Stop Date Status Note LastModified by Organization Details LastModified Time cyclobenz aprine 10 mg tablet TAKE 1 TABLET BY MOUTH EVERY 12 HOURS NEEDED 07/10 completed Not Available Not Available Not Available amoxicill in 500 mg capsule TAKE 1 CAPSULE BY MOUTH EVERY 8 HOURS UNTIL ALL TAKEN 07/16 completed Not Available Not Available Not Available methocarb myles 500 mg tablet 01/04 completed Not Available Not Available Not Available prednison e 10 mg tablet Take 1 tablet every day by oral route as directed for 7 days. active Take 40mg on day 1,2; Than 20mg on day 3,4; Than 10mg on day 5,6,7. Take with food. Not Available Not Available Not Available venlafaxi ne ER 75 mg capsule,e xtended release 24 hr 04/25 completed pt. stopped Not Available Not Available Not Available cyanocoba desiree (vit B-12) 2,500 mcg sublingua l tablet Place 1 tablet every day by sublingu al route for 90 days. 07/10 completed Not Available Not Available Not Available Depo-Medr ol 40 mg/mL suspensio n for injection 08/01 completed Not Available Not Available Not Available tizanidin e 2 mg tablet TAKE 1 TABLET BY MOUTH EVERY 12 HOURS NEEDED active Not Available Not Available No t Available cetirizin e 10 mg tablet Take 1 tablet every day by oral route as needed for 30 days. active Not Available Not Available No t Available atorvasta tin 10 mg tablet TAKE 1 TABLET BY MOUTH EVERY DAY active Not Available Not Available No t Available azithromy tl 250 mg tablet TAKE 2 TABLETS (500 MG) BY ORAL ROUTE ONCE DAILY FOR 1 DAY THEN 1 TABLET (250 MG) BY ORAL ROUTE ONCE DAILY FOR 4 DAYS active Not Available Not Available No t Available pravastat in 40 mg tablet Take 1 tablet every day by oral route at bedtime for 90 days. 10/18 completed Not Available Not Available Not Available tizanidin e 4 mg tablet Take 1 tablet every 12 hours by oral route as needed for 90 days. 2024 active Not Available Not Available Not Avai lable benzonata te 200 mg capsule TK 1 C PO Q 8 H FOR 10 DAYS PRN active Take as needed for cough. Not Available Not Available Not Available ranitidin e 300 mg tablet TAKE 1 TABLET BY MOUTH EVERY DAY AT BEDTIME active Not Available Not Available No t Available hydrocodo ne 5 mg-acetam inophen 325 mg tablet TAKE 1 TABLET BY MOUTH EVERY 4-6 HOURS NEEDED FOR PAIN 07/16 completed Not Available Not Available Not Available Celestone Soluspan 6 mg/mL suspensio n for injection 08/01 completed Not Available Not Available Not Available famotidin e 40 mg tablet TAKE 1 TABLET BY MOUTH EVERY NIGHT AT BEDTIME 07/10 completed Not Available Not Available Not Available prednison e 20 mg tablet Take 1 tablet every day by oral route with meals for 30 days. 01/04 completed Not Available Not Available Not Available sertralin e 100 mg tablet TAKE 2 TABLETS BY MOUTH EVERY DAY active Not Available Not Available No t Available phentermi ne 15 mg capsule Take 1 capsule every day by oral route before meals for 30 days. 06/27 completed Not Available Not Available Not Available venlafaxi ne ER 150 mg capsule,e xtended release 24 hr 04/25 completed Not Available Not Available Not Available phentermi ne 37.5 mg tablet TK 1 T PO QD B MEALS 06/27 completed Not Available Not Available Not Available allopurin ol 100 mg tablet TAKE 1 TABLET BY MOUTH EVERY DAY 2024 active Not Available Not Available Not Avai lable omeprazol e 40 mg capsule,d elayed release TAKE 1 CAPSULE BY MOUTH EVERY DAY BEFORE BREAKFAS T 03/16 completed Not Available Not Available Not Available aspirin 81 mg tablet,de layed release Take 1 tablet every day by oral route with meals for 90 days. 07/16 completed Not Available Not Available Not Available tramadol 50 mg tablet Take 1 tablet every 6 hours by oral route as needed for 3 days. 04/04 completed Not Available Not Available Not Available phentermi ne 30 mg capsule 1 PO DAILY 30 mins before breakfas t. active Not Available Not Available No t Available ketorolac 30 mg/mL (1 mL) injection solution 1 ml as directed intramus cularly 04/04 completed Not Available Not Available Not Available amoxicill in 875 mg tablet active Not Available Not Available Not Available famotidin e 20 mg tablet TK 1 T PO BID active Not Available Not Available No t Available pravastat in 10 mg tablet Take 1 tablet every day by oral route at bedtime for 90 days. 09/21 completed Not Available Not Available Not Available pantopraz ole 40 mg tablet,de layed release TAKE 1 TABLET BY MOUTH EVERY DAY 30 MINUTES BEFORE BREAKFAS T 2024 active Not Available Not Available Not Avai lable cyanocoba desiree (vit B-12) 1,000 mcg/mL injection solution Inject 1 mL every week by subcutan eous route as directed for 30 days. 08/20 completed [facility] [id number] Not Available Not Available Not Available ferrous sulfate 325 mg (65 mg iron) tablet Take 1 tablet twice a day by oral route with meals for 90 days. active Not Available Not Available No t Available nystatin 100,000 unit/gram topical cream as needed 05/11 completed Not Available Not Available Not Available lidocaine 5 % topical patch APPLY 1 PATCH TOPICALL Y TO THE SKIN DAILY. MAY WEAR UP TO 12 HOURS active Not Available Not Available No t Available gabapenti n 300 mg capsule TAKE 1 CAPSULE BY MOUTH TWO TIMES DAILY DIRECTED 2024 active Not Available Not Available Not Avai lable omeprazol e 20 mg capsule,d elayed release Take 1 capsule( s) every day by oral route before meals for 90 days. active Not Available Not Available No t Available diclofena c sodium 75 mg tablet,de layed release TAKE 1 TABLET BY MOUTH TWICE DAILY WITH FOOD NEEDED 06/27/ 2025 active Not Available Not Available Not Avai lable monteluka st 10 mg tablet Take 1 tablet every day by oral route in the evening for 90 days. active Not Available Not Available No t Available hydroxyzi ne HCl 25 mg tablet TAKE 1 TABLET BY MOUTH EVERY DAY NEEDED ANXIETY active Not Available Not Available No t Available pravastat in 20 mg tablet Take 1 tablet every day by oral route as directed for 90 days. active Not Available Not Available No t Available zaleplon 10 mg capsule TAKE 1 CAPSULE BY MOUTH EVERY EVENING NEEDED FOR INSOMNIA . 12/14 completed Not Available Not Available Not Available diclofena c sodium 50 mg tablet,de layed release TK 1 T PO BID 01/03 completed Not Available Not Available Not Available zolpidem 5 mg tablet TAKE 1 TABLET BY MOUTH EVERY NIGHT NEEDED FOR INSOMNIA 07/16 completed Not Available Not Available Not Available gabapenti n 100 mg capsule TAKE 2 CAPSULES BY MOUTH THREE TIMES DAILY DIRECTED 04/04 completed Not Available Not Available Not Available ergocalci ferol (vitamin D2) 1,250 mcg (50,000 unit) capsule TAKE 1 CAPSULE BY MOUTH EVERY WEEK 2024 active Not Available Not Available Not Avai lable nystatin 100,000 unit/gram topical powder APPLY A THIN LAYER TO THE AFFECTED AREA 1-2 TIMES DAILY TO PREVENT SKIN RASH 10/18 completed Not Available Not Available Not Available zolpidem 10 mg tablet TAKE 1 TABLET BY MOUTH EVERY NIGHT NEEDED FOR INSOMNIA active Not Available Not Available No t Available methylpre dnisolone 4 mg tablets in a dose pack FOLLOW PACKAGE DIRECTIO NS 10/18 completed Not Available Not Available Not Available ferrous sulfate 325 mg (65 mg iron) tablet,de layed release Take 1 tablet every day by oral route with meals for 90 days. 07/16 completed Not Available Not Available Not Available fluticaso ne propionat e 50 mcg/actua tion nasal spray,eddie pension SHAKE LQ AND U 2 SPRAYS NASALLY QD UTD NEEDED. active Not Available Not Available No t Available metformin ER 500 mg tablet,ex tended release 24 hr Take 1 tablet every day by oral route with meals for 90 days. active Not Available Not Available No t Available lisinopri l 2.5 mg tablet TAKE 1 TABLET BY MOUTH EVERY DAY DIRECTED active Not Available Not Available No t Available amoxicill in 875 mg-potass ium clavulana te 125 mg tablet TAKE 1 TABLET BY MOUTH EVERY 12 HOURS FOR 10 DAYS 09/13 completed Not Available Not Available Not Available amoxicill in 500 mg-potass ium clavulana te 125 mg tablet TK 1 T PO Q 12 H FOR 10 DAYS 11/22 completed Not Available Not Available Not Available ezetimibe 10 mg tablet TAKE 1 TABLET BY MOUTH EVERY DAY QAM 2024 active Not Available Not Available Not Avai lable cholestyr amine (with sugar) 4 gram powder for susp in a packet Take 1 packet twice a day by oral route as directed for 90 days. active Not Available Not Available No t Available rosuvasta tin 20 mg tablet TAKE 1 TABLET BY MOUTH EVERY NIGHT AT BEDTIME 2024 active Not Available Not Available Not Avai lable eszopiclo ne 2 mg tablet TAKE 1 TABLET BY MOUTH IN THE EVENING NEEDED 01/04 completed Not Available Not Available Not Available Lyrica 50 mg capsule Take 1 capsule every 12 hours by oral route as directed for 30 days. 08/09 completed Not Available Not Available Not Available chlorhexi dine gluconate 0.12 % mouthwash 07/16 completed Not Available Not Available Not Available aripipraz ole 2 mg tablet TAKE 1 TABLET BY MOUTH EVERY DAY active Not Available Not Available No t Available Januvia 25 mg tablet Take 1 tablet every day by oral route in the morning for 90 days. 07/24 completed Not Available Not Available Not Available Januvia 50 mg tablet TK 1 T PO QD 03/13 completed Not Available Not Available Not Available Januvia 100 mg tablet TAKE 1 TABLET BY MOUTH DAILY AFTER FOOD 02/27 completed Not Available Not Available Not Available olopatadi ne 0.2 % eye drops INT 1 GTT AEY ONCE D 07/12 completed Not Available Not Available Not Available ferrous sulfate 324 mg (65 mg iron) tablet,de layed release TAKE 1 TABLET BY MOUTH EVERY DAY WITH A MEAL 12/14 completed Not Available Not Available Not Available levocetir izine 5 mg tablet TAKE 1 TABLET BY MOUTH EVERY DAY DIRECTED active Not Available Not Available No t Available Savella 25 mg tablet Take 1 tablet twice a day by oral route as directed for 90 days. 07/16 completed Not Available Not Available Not Available Solu-Medr ol (PF) 125 mg/2 mL solution for injection Take 125 mg by injectio n route for 1 day. 02/13 completed pt evelyn well Not Available Not Available Not Available Xifaxan 550 mg tablet TAKE 1 TABLET BY MOUTH THREE TIMES DAILY FOR 14 DAYS DIRECTED active Not Available Not Available No t Available Livalo 1 mg tablet TAKE 1 TABLET BY MOUTH EVERY DAY AT BEDTIME 06/28 completed Not Available Not Available Not Available Tradjenta 5 mg tablet 12/14 completed Not Available Not Available Not Available Vascepa 1 gram capsule TAKE 2 CAPSULES BY MOUTH TWICE DAILY DIRECTED 05/11 completed Not Available Not Available Not Available Invokana 300 mg tablet TAKE 1/2 TABLET BY MOUTH EVERY DAY DIRECTED 07/24 completed Not Available Not Available Not Available Jardiance 25 mg tablet TAKE 1 TABLET BY MOUTH EVERY DAY IN THE MORNING active Not Available Not Available No t Available Contrave 8 mg-90 mg tablet,ex tended release 01/10 completed Not Available Not Available Not Available Trulicity 1.5 mg/0.5 mL subcutane ous pen injector ADMINIST ER 1.5 MG UNDER THE SKIN EVERY WEEK DIRECTED 06/21 completed Not Available Not Available Not Available Ozempic 0.25 mg or 0.5 mg (2 mg/1.5 mL) subcutane ous pen injector Inject 0.25 mg every week by subcutan eous route as directed . 06/21 completed Not Available Not Available Not Available Rybelsus 14 mg tablet TAKE 1 TABLET BY MOUTH EVERY DAY IN THE MORNING 12/14 completed Not Available Not Available Not Available Rybelsus 7 mg tablet Take 1 tablet every day by oral route in the morning for 90 days. 07/16 completed Not Available Not Available Not Available Rybelsus 3 mg tablet TAKE 1 TABLET BY MOUTH EVERY DAY DIRECTED 08/20 completed Not Available Not Available Not Available ID NOW COVID-19 Test Kit USE DIRETCED 08/20 completed Not Available Not Available Not Available COVID-19 test specimen collectio n USE DIRECTED 08/06 completed Not Available Not Available Not Available Sutab 1.479-0.1 88-0.225 gram tablet DIRECTED 08/27 completed Not Available Not Available Not Available Ozempic 1 mg/dose (4 mg/3 mL) subcutane ous pen injector INJECT 1 MG UNDER THE SKIN EVERY WEEK DIRECTED 12/14 completed Not Available Not Available Not Available Plenity (Welcome Kit) 0.75 gram capsule Take 3 capsules twice a day by oral route before meals for 30 days. 12/14 completed Not Available Not Available Not Available Paxlovid 300 mg (150 mg x 2)-100 mg tablets in a dose pack TAKE 1 DOSE PK TWICE A DAY BY ORAL ROUTE DIRECTED FOR 5 DAYS 06/21 completed Not Available Not Available Not Available Ozempic 2 mg/dose (8 mg/3 mL) subcutane ous pen injector INJECT 2MG UNDER THE SKIN ONCE WEEKLY 05/11 completed Not Available Not Available Not Available Mounjaro 5 mg/0.5 mL subcutane ous pen injector Inject by subcutan eous route for 28 days. 06/21 completed Not Available Not Available Not Available Mounjaro 15 mg/0.5 mL subcutane ous pen injector ADMINIST ER 15 MG UNDER THE SKIN EVERY WEEK DIRECTED active Not Available Not Available No t Available Mounjaro 10 mg/0.5 mL subcutane ous pen injector ADMINIST ER 10 MG UNDER THE SKIN EVERY WEEK DIRECTED 06/08 completed Not Available Not Available Not Available Mounjaro 12.5 mg/0.5 mL subcutane ous pen injector Inject 12.5 mg every week by subcutan eous route as directed . 10/18 completed Not Available Not Available Not Available Ozempic 0.25 mg or 0.5 mg (2 mg/3 mL) subcutane ous pen injector INJECT 0.5 MG UNDER THE SKIN EVERY WEEK DIRECTED 08/24 completed Not Available Not Available Not Available Vitals Date Recorded Body height Heart rate Body temperature Body mass index (BMI) Body weight Oxygen saturation Oxygen saturation in Arterial blood by Pulse oximetry Systolic And Diastolic Provider Name and Address Organization Details Last Updated DateTime 01/08/202 5 154.94 cm 76 /min 97.5 [degF] 38.7 kg/m2 26646.4 4 g 98 % 98 % 100/70 mm[Hg] Alyse Rick CMA [facility] 5 11:34:18 Date Recorded Oxygen saturation Oxygen saturation in Arterial blood by Pulse oximetry Provider Name and Address Organization Details Last Updated DateTime 12/27/2024 97 % 97 % Homer Segura MD [address] [place] [address], [place] [address], [place], [address], [facility] 12/27/2024 09:33:35 Date Recorded Body height Body mass index (BMI) Body weight Body temperature Heart rate Systolic And Diastolic Provider Name and Address Organization Details Last Updated DateTime 5 154.94 cm 37 kg/m2 11628.4 5 g 97.6 [degF] 92 /min 110/64 mm[Hg] Antionette Larson RN [facility] 5 09:20:13 Date Recorded Body height Body mass index (BMI) Body weight Body temperature Oxygen saturation Oxygen saturation in Arterial blood by Pulse oximetry Heart rate Systolic And Diastolic Provider Name and Address Organization Details Last Updated DateTime 5 154.94 cm 36.5 kg/m2 20820.0 3 g 98.1 [degF] 97 % 97 % 81 /min 110/60 mm[Hg] Antionette Larson RN [facility] 5 15:39:42 Date Recorded Body height Body mass index (BMI) Body weight Body temperature Oxygen saturation Oxygen saturation in Arterial blood by Pulse oximetry Heart rate Systolic And Diastolic Provider Name and Address Organization Details Last Updated DateTime 5 154.94 cm 36.7 kg/m2 62030.3 2 g 97.3 [degF] 96 % 96 % 80 /min 110/60 mm[Hg] Antionette Larson RN [facility] 5 12:09:02 Date Recorded Body height Body mass index (BMI) Body weight Body temperature Oxygen saturation Oxygen saturation in Arterial blood by Pulse oximetry Heart rate Systolic And Diastolic Provider Name and Address Organization Details Last Updated DateTime 5 154.94 cm 35.9 kg/m2 78921.9 g 97.7 [degF] 99 % 99 % 81 /min 100/62 mm[Hg] Antionette Larson RN [place] - [facility] [employer] 5 09:16:42 Social History Question Answer Notes LastModified by Organizat ion Details LastModified Time Tobacco Smoking Status Never Smoker Not Available [employer] 12/09/2022 04:13:25 Do You Have An Advance Directive? No [id number] Information not available 12/09/2022 Do You Wear A Helmet When Biking? No [id number] Information not available 12/09/2022 Is Blood Transfusion Acceptable In An Emergency? Yes Information not available 12/15/2023 What Is Your Level Of Caffeine Consumption? Heavy [id number] Information not available 12/09/2022 What Is Your Code Status? Full Code Information not available 12/15/2023 In The 14 Days Before Symptom Onset, Have You Had Close Contact With A Laboratory-confir med COVID-19 While That Case Was Ill? No [id number] Information not available 12/09/2022 In The 14 Days Before Symptom Onset, Have You Had Close Contact With A Person Who Is Under Investigation For COVID-19 While That Person Was Ill? No [id number] Information not available 12/09/2022 What Type Of Diet Are You Following? REGULAR [id number] Information not available 12/09/2022 Have There Been Any Changes To Your Family Or Social Situation? No [id number].[id number] Information not available 12/09/2022 What Is The Fluoride Status Of Your Home? Unknown [id number] Information not available 12/09/2022 Are There Any Guns Present In Your Home? No [id number] Information not available 12/09/2022 Do You Use Insect Repellent Routinely? Yes [id number] Information not available 12/09/2022 Where Do You Live? [place] MIGRATION.[id number] Information not available 12/09/2022 Do You Have A Medical Power Of Dobby Loom Weaver? No [id number] Information not available 12/09/2022 What Was The Date Of Your Most Recent Tobacco Screening? 05/09/2024 [email or web address] Information not available 05/09/2024 How Many Children Do You Have? 2 Information not available 12/15/2023 Do You Have Any Pets? Yes [id number] Information not available 12/09/2022 What Is Your Relationship Status? [id number].[id number] Information not available 12/09/2022 Do You Use Your Seat Belt Or Car Seat Routinely? Yes MIGRATION.[id number] Information not available 12/09/2022 Do You Have Smoke And Carbon Monoxide Detectors In Your Home? Yes MIGRATION.[id number] Information not available 12/09/2022 Are You Passively Exposed To Smoke? No MIGRATION.[id number] Information not available 12/09/2022 Are There Any Smokers In Your House? No MIGRATION.[id number] Information not available 12/09/2022 Do You Participate In Social [employer]? No [id number].[id number] Information not available 12/09/2022 Do You Use Sunscreen Routinely? Yes [id number] Information not available 12/09/2022 Has Tobacco Cessation Counseling Been Provided? No MIGRATION.[id number] Information not available 12/09/2022 Have You Recently Traveled Abroad? No MIGRATION.[id number] Information not available 12/09/2022 Are You Currently In School? No MIGRATION.[id number] Information not available 12/09/2022 Do You Have Any Dietary Restrictions? No MIGRATION.[id number] Information not available 12/09/2022 Sex: Female Functional Status Question Answer Note LastModified by Organizat ion Details LastModified Time Do you use any illicit or recreational drugs? No [id number] Information not available 12/09/2022 Do you or have you ever used any other forms of tobacco or nicotine? No [id number] Information not available 12/09/2022 What is your level of alcohol consumption? 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 None [id number] Information not available 12/09/2022 Mental Status Question Answer Note LastModified by Organizat ion Details LastModified Time Do you feel stressed (tense, restless, nervous, or anxious, or unable to sleep at night)? [id number] [id number] Information not available 12/09/2022 Family History Nothing Reported. Medical History Condition Response BLINDNESS N RHEUMATIC FEVER N KIDNEY STONES N BLADDER PROBLEMS N MRSA N OTHER # 1 N POLIO N LUNG DISEASE/DISORDER N RADIATION / CHEMOTHERAPY N COPD N Other # 2 N BLOOD DISEASES N SURGERY N EAR OR HEARING PROBLEMS Y MUMPS N FEMALE PROBLEMS / INFECTIONS Y DEPRESSION (INCLUDING POST ) Y BOWEL PROBLEMS Y STROKE/TIA N THYROID DISEASE N ULCERS N BENIGN PROSTATIC HYPERPLASIA N MEASLES N CERVICALGIA N TB SKIN TEST N MYOCARDIAL INFARCTION N PARAPELGIA N OBESITY Y GERD/NAUSEA Y ANEURYSM N URINARY/BLADDER/KIDNEY PROBLEMS N CORONARY ARTERY DISEASE (CAD) N MENIERE'S DISEASE N ADDICTION CONCERNS N ENDOMETRIOSIS N USE OF BLOOD THINNERS N SKIN PROBLEMS N EMPHYSEMA N GASTROINTESTINAL DISORDER N MUSCLE,JOINT OR BONE PROBLEMS N GASTROINTESTINAL BLEEDING N BLOOD CLOTS N ASTHMA N CATARACTS N ERECTILE DYSFUNCTION N GI PROBLEMS N CHF N Low Testosterone N NEUROPATHY N INFERTILITY N AIDS/HIV N FRACTURES N CHEMOTHERAPY / RADIATION N VISION/EYE PROBLEMS N LIVER DISEASE N MALE HYPOGONADISM N HYPERTENSION Y TOURETTE'S N ANXIETY DISORDER Y BLOOD TRANSFUSION N ANEMIA/BLOOD DISORDER Y CHRONIC EAR INFECTIONS N BRONCHITIS N TUBERCULOSIS N GLAUCOMA N FOOT PROBLEM N DIVERTICULITIS N SLEEP APNEA N CHICKENPOX N ALLERGIES/HAYFEVER Y INFECTIOUS DISEASE N PROSTATE N HEART ARRHYTHMIA N INSOMNIA Y HIGH CHOLESTEROL / HYPERLIPIDEMIA Y EYE PROBLEMS Y HYPERTHYROIDISM N EATING DISORDER N EDEMA N CHRONIC PAIN SYNDROME N CAROTID BLOCKAGE N CONSTIPATION N BACK / NECK PROBLEMS Y HAVE YOU BEEN HOSPITALIZED OR SEEN IN [facility] IN THE PAST YEAR ? N ATHEROSCLEROSIS N BREAST PROBLEMS N DIALYSIS N ECZEMA N FIBROMYALGIA N OSTEOPOROSIS N ARTHRITIS Y NO SIGNIFICANT PAST MEDICAL HISTORY N APPENDICITIS N DIABETES, TYPE Y BAD TEETH N HEARTBURN / REFLUX Y ADD/ADHD N AUTISM SPECTRUM DISORDER (ASD) N HEPATITIS / LIVER DISEASE N PULMONARY DISEASE N GOUT N SLEEP DISORDER N ALZHEIMER'S DISEASE N PAIN N DEMENTIA N HERPES N SEIZURES/EPILEPSY N HEADACHES/MIGRAINES N VASCULAR DISEASE N PACEMAKER N DIZZINESS N HEART DISEASE/HEART PROBLEMS N KIDNEY DISEASE N SCARLET FEVER N MULTIPLE SCLEROSIS N DEVELOPMENTAL OR BEHAVIORAL DISORDERS N MENTAL DISORDER/ILLNESS Y CANCER: SPECIFY N CARDIAC ARRHYTHMIA N PNEUMONIA N ATRIAL FIBRILLATION N Gall Stones N PULMONARY EMBOLISM N AUTOIMMUNE DISEASE N Gynecological History Statement/Question Response If Post Menopausal, Age at Menopause Obstetrics History GPAL:G 2 P 2 0 0 2 Type Value Full Term 2 Living 2 Total 2 Immunizations Vaccine Type Date Status Note Provider Nam e and Address Organization Details Recorded Time MMR 5 completed LUBNA Robles [place] - [facility] [employer] 12/27/2024 11:21:47 influenza, unspecified formulation 2 completed Not Available [facility] 12/09/2022 04:58:12 Influenza, split virus, trivalent, preservative 6 completed Not Available [facility] 12/09/2022 04:58:12 Influenza, split virus, trivalent, preservative 5 completed Not Available [facility] 12/09/2022 04:58:12 Influenza, split virus, trivalent, preservative 4 completed Not Available [facility] 12/09/2022 04:58:13 MMR 3 completed Not Available [facility] 12/09/2022 04:58:13 Tdap 3 completed Not Available [facility] 12/09/2022 04:58:13 Influenza, split virus, quadrivalent, PF 9 completed Not Available [facility] 12/09/2022 04:58:13 Tdap 3 completed AMIRA Esparza [facility] [employer] 08/24/2023 16:33:43 Past Encounters Encounter ID Performer Location Encounter Start Date Encounter Closed Date Diagnosis/Indication Diagnosis SNOMED-CT Code Diagnosis ICD10 Code Diagnosis Note [id number] Homer Segura MD [address] [address] 02/03/2021 00:00:00 02/03/2021 10:59:58 [id number] Homer Segura MD [facility] [address] [place] [id number] 1 02/05/2021 00:00:00 02/05/2021 09:44:46 [id number] Homer Segura MD [facility] [address] [place] [id number] 1 03/27/2021 00:00:00 03/27/2021 17:53:05 [id number] [facility] [address] [place] [address] 05/07/2021 00:00:00 05/07/2021 09:20:[id number] [facility] [address] [place] [address] 08/06/2021 00:00:00 08/06/2021 09:40:56 [id number] Homer Segura MD [facility] [address] [place] [address] 08/20/2021 00:00:00 08/20/2021 10:18:36 [id number] [facility] [address] [place] [address] 11/18/2021 00:00:00 11/18/2021 09:47:24 [id number] [address] [facility] [address] [place] [address] 11/20/2021 00:00:00 11/20/2021 09:29:21 [id number] [facility] [address] [place] [address] 01/30/2022 00:00:00 02/02/2022 11:24:[id number] [facility] [address] [place] [address] 03/16/2022 00:00:00 03/16/2022 09:30:[id number] [facility] [address] [place] [address] 07/16/2022 00:00:00 07/16/2022 09:46:39 [id number] [facility] [address] [place] [address] 07/30/2022 00:00:00 07/30/2022 11:49:59 [id number] _ATHN_MIGR ATION_1 _ATHENA_M IGRATION_ DEFAULT_1 _1 , 08/05/2022 00:00:00 08/05/2022 17:01:22 [id number] _ATHN_MIGR ATION_1 _ATHENA_M IGRATION_ DEFAULT_1 _1 , 09/02/2022 00:00:00 09/02/2022 12:14:12 [id number] _ATHN_MIGR ATION_1 _ATHENA_M IGRATION_ DEFAULT_1 _1 , 10/07/2022 00:00:00 10/07/2022 16:21:59 [id number] Homer Segura MD [address] [address] 10/29/2022 00:00:00 10/29/2022 10:37:17 [id number] Homer Segura MD [address] [address] 12/14/2022 14:14:38 12/14/2022 14:54:52 Mixed hypercholesterolemia and hypertriglyceridemia 358875482 E78.2 Type 2 john betes mellitus without complication 108105000 E11.9 Fibromyalgia 557395051 M 79.7 Gastroesop hageal reflux disease without esophagitis 620906084 K21.9 Gouty arthropathy 932300 008 M10.09 Anemia 607536004 D64.9 Hyperlipidemia 52451072 E78.5 Obesity 634215063 E66.9 [id number] Homer Segura MD [address] [address] 03/15/2023 09:37:20 03/15/2023 10:45:32 [id number] Homer Segura MD [address] [address] 03/16/2023 08:56:24 03/16/2023 09:18:13 Type 2 diabetes mellitus without complication 968334626 E11.9 Mixed hypercholesterolemia and hypertriglyceridemia 349469481 E78.2 Fibromyalgia 606687402 M 79.7 Gastroesop hageal reflux disease without esophagitis 269829578 K21.9 Gouty arthropathy 232141 008 M10.09 Anemia 661393548 D64.9 Hyperlipidemia 72328818 E78.5 Obesity 279622170 E66.9 Screening mammography 24 046571 Z12.31 [id number] Homer Segura MD [address] [address] 06/16/2023 09:20:09 06/16/2023 09:50:21 [id number] Homer Segura MD [place] [address] 1 06/21/2023 14:36:09 06/21/2023 15:19:43 Type 2 diabetes mellitus without complication 306246644 E11.9 Mixed hypercholesterolemia and hypertriglyceridemia 773295154 E78.2 Fibromyalgia 633789091 M 79.7 Gastroesop hageal reflux disease without esophagitis 398738692 K21.9 Gouty arthropathy 211120 008 M10.09 Anemia 709357951 D64.9 Hyperlipidemia 61052459 E78.5 Obesity 838499358 E66.9 [id number] Homer Segura MD [address] [address] 08/24/2023 09:56:36 08/24/2023 10:41:57 Type 2 diabetes mellitus without complication 784708226 E11.9 Mixed hypercholesterolemia and hypertriglyceridemia 876827749 E78.2 Fibromyalgia 237748783 M 79.7 Gastroesop hageal reflux disease without esophagitis 014619961 K21.9 Gouty arthropathy 052369 008 M10.09 Anemia 294574781 D64.9 Hyperlipidemia 75754318 E78.5 Obesity 393386803 E66.9 Screening for osteoporosis 052064855 Z13.820 Active immunization 3387 9002 Z23 Adult heal th examination 220101722 Z00.00 Sinusitis 64479147 J32.9 Allergic rhinitis 247729 04 J30.9 Polyarthropathy 62030225 M13.0 History of peptic ulcer 394562908 Z87.11 2021 [id number] Homer Segura MD [address] [address] 09/13/2023 09:11:49 09/13/2023 09:56:43 Type 2 diabetes mellitus without complication 504681859 E11.9 Mixed hypercholesterolemia and hypertriglyceridemia 380132216 E78.2 Fibromyalgia 403530937 M 79.7 Gastroesop hageal reflux disease without esophagitis 379026432 K21.9 Gouty arthropathy 983974 008 M10.09 Anemia 516466482 D64.9 Hyperlipidemia 13726029 E78.5 Obesity 422568659 E66.9 Allergic rhinitis 002466 04 J30.9 Polyarthropathy 38829045 M13.0 History of peptic ulcer 387348110 Z87.11 2021 [id number] Homer Segura MD [address] [address] 12/15/2023 09:03:55 12/15/2023 09:49:45 Type 2 diabetes mellitus without complication 125573359 E11.9 Mixed hypercholesterolemia and hypertriglyceridemia 447163534 E78.2 Fibromyalgia 958716755 M 79.7 Gastroesop hageal reflux disease without esophagitis 581492639 K21.9 Gouty arthropathy 182361 008 M10.09 Anemia 519422725 D64.9 Hyperlipidemia 41436896 E78.5 Obesity 327506517 E66.9 Allergic rhinitis 711695 04 J30.9 Polyarthropathy 40340792 M13.0 History of peptic ulcer 312314202 Z87.11 2021 Diabetic p eripheral neuropathy 411809737 E11.40 [id number] Homer Segura MD [address] [address] 01/05/2024 13:59:02 01/05/2024 16:04:55 Sciatica 30823970 M54.30 [id number] Homer Segura MD [address] [address] 03/02/2024 09:25:15 03/02/2024 10:05:30 [id number] Homer Segura MD [facility] [address] [address] 04/04/2024 17:23:28 04/04/2024 17:54:08 Type 2 diabetes mellitus without complication 716079707 E11.9 Fibromyalgia 687300702 M 79.7 Gastroesop hageal reflux disease without esophagitis 832755572 K21.9 Gouty arthropathy 172648 008 M10.09 Anemia 829543780 D64.9 Hyperlipidemia 55517496 E78.5 Obesity 496794041 E66.9 Allergic rhinitis 611737 04 J30.9 Polyarthropathy 63843941 M13.0 History of peptic ulcer 444350986 Z87.11 2021 Diabetic p eripheral neuropathy 518519570 E11.40 Bilateral wrist pain 849 4324568 4879907 M25.531 Screening mammography 24 186836 Z12.31 Screening for osteoporosis 164476215 Z13.028 [id number] Ortiz Hanley DPM [facility] [place] [address] [address] 04/21/2024 09:21:29 05/18/2024 08:01:52 Plantar fasciitis 507450520 M72.2 [id number] Ortiz Hanley DPM [facility] [place] [address] [address] 1 05/01/2024 09:21:02 05/02/2024 09:20:59 [id number] Ortiz Hanley DPM [facility] [place] [address] [address] 05/09/2024 09:21:44 05/09/2024 14:41:44 Plantar fasciitis 003501797 M72.2 [id number] Brett Reese DPM [facility] [place] [address] [place] [address] 05/11/2024 14:37:10 05/15/2024 11:10:06 Pain of left heel 8169265187 466080 M79.672 x-rays reviewedri ce therapysup portive shoe gearNo strenuous activities Plantar fa sciitis of left foot 3754095900 8229629 M72.2 educated on conditionr ecommend supportive shoe gear and orthotics- [employer] retching icing instructio ns reviewedPl rose heel injection todayFollo w-up in 1 month possible physical therapy at that time Plantar fa sciitis of right foot 0904870168 8237157 M72.2 no injection performedR ecommend supportive shoe gear, insoles, stretching daily to prevent recurrence or worsening [id number] Brett Reese DPM [facility] [place] [address] [facility] [address] [place] [address] 06/05/2024 09:22:53 06/05/2024 16:29:19 Plantar fasciitis of left foot 9605005957 8443794 M72.2 educated on conditionr ecommend supportive shoe gear and orthotics- [employer]step Pinnacleor thotics placed in shoe gear today- has supportive athletic tennis shoesStret layne joshua instructio amanda reviewedle ft heel injection on 05/11/2024 Follow-up in 1 month -- follow-up therapy, possible Cam boot therapy Plantar fa sciitis of right foot 5807736266 3817940 M72.2 Recommend supportive shoe gear, insoles, stretching daily to prevent recurrence or worsening [id number] Homer Segura MD [facility] [address] [address] 06/08/2024 08:58:07 06/08/2024 09:22:32 Type 2 diabetes mellitus without complication 896137647 E11.9 Gouty arthropathy 920975 008 M10.09 Fibromyalgia 787587597 M 79.7 Gastroesop hageal reflux disease without esophagitis 477016516 K21.9 Anemia 583482771 D64.9 Hyperlipidemia 91932312 E78.5 Obesity 331114786 E66.9 Allergic rhinitis 371062 04 J30.9 Polyarthropathy 03112764 M13.0 History of peptic ulcer 390054008 Z87.11 2022 Diabetic p eripheral neuropathy 823817596 E11.40 Bilateral wrist pain 314 5849788 8273150 M25.[id number] [facility] [place] [address] [place] [address] 07/10/2024 09:53:57 07/10/2024 11:40:43 Plantar fasciitis of left foot 9795831977 8403639 M72.2 educated on conditionr ecommend supportive shoe gear and orthotics- [employer] thotics placed in shoe gear today- has supportive athletic tennis shoesStret layne icing instructio ns reviewedle ft heel injection on 05/11/2024 did not go to physical therapyfol low up- as needed Plantar fa sciitis of right foot 3072796918 6670525 M72.2 Recommend supportive shoe gear, insoles, stretching daily to prevent recurrence or worsening [id number] Homer Segura MD [address] [address] 08/21/2024 09:27:51 08/21/2024 10:06:39 Lip swelling 436009806 K13.0 Both Itching of skin 59954387 0 L29.9 Fibromyalgia 510222157 M 79.7 Gouty arthropathy 617728 008 M10.09 Plantar fasciitis 439187 003 M72.2 Polyarthropathy 97282397 M13.0 Polymyalgi a rheumatica 40808436 M35.3 Walking disability 43017 8008 R26.2 Obesity 161771226 E66.9 [id number] Homer Segura MD [address] [address] 08/28/2024 09:03:22 08/28/2024 10:01:33 Gouty arthropathy 010882509 M10.09 Fibromyalgia 352176798 M 79.7 Type 2 john betes mellitus without complication 434110769 E11.9 Gastroesop hageal reflux disease without esophagitis 907853893 K21.9 Anemia 076238870 D64.9 Hyperlipidemia 95561013 E78.5 Obesity 595752649 E66.9 Allergic rhinitis 830142 04 J30.9 Polyarthropathy 78235790 M13.0 History of peptic ulcer 868674554 Z87.11 202 Diabetic p eripheral neuropathy 067962948 E11.40 Bilateral wrist pain 591 4542014 7566189 M25.531 Adult heal th examination 251031983 Z00.00 Screening for osteoporosis 428613765 Z13.578 [id number] Homer Segura MD [address] [address] 09/27/2024 10:05:14 09/27/2024 11:08:35 Gouty arthropathy 779860794 M10.09 Fibromyalgia 690640133 M 79.7 Type 2 john betes mellitus without complication 751187070 E11.9 Gastroesop hageal reflux disease without esophagitis 475902994 K21.9 Anemia 295414986 D64.9 Hyperlipidemia 37880820 E78.5 Obesity 667260128 E66.9 Allergic rhinitis 677824 04 J30.9 Polyarthropathy 05511515 M13.0 History of peptic ulcer 701417707 Z87.11 202 Diabetic p eripheral neuropathy 643176924 E11.40 Microscopic hematuria 19 9817628 R31.29 Chronic low back pain 27 3803996 M54.50 [id number] Luke Lorenzo MD [facility] [address] [address] 10/18/2024 11:23:45 10/18/2024 11:47:31 Urinary symptoms 026859900 R39.9 Microscopic hematuria 19 5376704 R31.29 [id number] Homer Segura MD [address] [address] 12/27/2024 09:08:50 12/27/2024 09:48:02 Anemia 211997962 D64.9 Gastroesop hageal reflux disease without esophagitis 958043411 K21.9 Gouty arthropathy 775215 008 M10.09 Fibromyalgia 640664911 M 79.7 Type 2 john betes mellitus without complication 645303431 E11.9 Hyperlipidemia 09481085 E78.5 Obesity 933839515 E66.9 Allergic rhinitis 334419 04 J30.9 Polyarthropathy 20979836 M13.0 History of peptic ulcer 805161512 Z87.11 2021 Diabetic p eripheral neuropathy 466999198 E11.40 Microscopic hematuria 19 7338703 R31.29 Chronic low back pain 27 1739019 M54.50 Active or passive immunization 754241174 Z23 [id number] Homer Segura MD [address] [address] 02/13/2025 15:24:25 02/13/2025 15:56:25 Chronic low back pain 642857119 M54.50 G89.29 Low back pain 409226594 M54.59 Contusion of trunk 14250 001 S30.1XXA Body mass index 30+ - obesity 512245229 E66.9 Type 2 john betes mellitus 69485526 E11.9 [id number] Homer Segura MD [address] [address] 02/27/2025 11:58:13 02/27/2025 12:27:57 Chronic low back pain 829001440 M54.50 G89.29 Low back pain 441068240 M54.59 Contusion of trunk 86785 001 S30.1XXA resolved Body mass index 30+ - obesity 678270655 E66.9 Type 2 john betes mellitus 14033811 E11.9 Lumbar spondylosis 63505 0009 M47.816 Pt declined for PT. Bilateral sacroiliitis 9255996170 M46.1 [id number] Homer Segura MD [address] [address] 03/29/2025 09:01:05 03/29/2025 09:25:58 Gouty arthropathy 327128383 M10.09 Fibromyalgia 760155559 M 79.7 Anemia 397655493 D64.9 Gastroesop hageal reflux disease without esophagitis 954687132 K21.9 Type 2 john betes mellitus without complication 207366509 E11.9 Hyperlipidemia 51063033 E78.5 Obesity 202194384 E66.9 Allergic rhinitis 632179 04 J30.9 Polyarthropathy 48928197 M13.0 History of peptic ulcer 291854523 Z87.11 2021 Diabetic p eripheral neuropathy 002245473 E11.40 Microscopic hematuria 19 0970647 R31.29 Chronic low back pain 27 6413593 M54.50 Irritable bowel syndrome with diarrhea 511982835 K58.0 Health Concerns Section Related Observation LastModified by Organization Detai ls LastModified Time None Recorded Concern Status LastModified by Organization Details LastModified Time None Recorded Advance Directives Directive N: Payers Insurance Date Sequence Insurance Name Policy Number Policy Barba Covered Member ID Barba Member ID Guarantor Name 03/26/2025 1 [employer] - OPEN ACCESS Milli Karimi [id number] SOI Milli Karimi Notes Date Note Type Note Provider Name and Address Organization Details Recorded Time 10/18/2024 text/html this patient was seen by her primary care and had a urine dipstick that showed some trace blood to my understanding. So she was referred for evaluation for possible microscopic hematuria. She has never had gross hematuria. She denies any urinary significant symptoms but she does have urinary incontinence she wears 1 pad per day. She has stress incontinence. It was after her childbirth that she started having bladder leakage She denies any symptoms of UTI. She has had a very minimal smoking history just off and on now and then nothing consistent Luke Lorenzo MD [address] [place] [address], [facility] [address], [place], [address], [place] [employer] 10/18/2024 12:28:14 12/27/2024 text/html Pt is here for f /u on her x-ray, meds and chronic conditions. Doing overall well. Denies any problem with meds. Denies any new concern for today. Pt has not gone for x-ray yet. Pt wants to get MMR vaccine today. Here lip swelling is resolved and no more concern with it.Pt has been started on Crestor, Zetia and Vascepa and doing well with it. Denies any problems with meds.Pt is doing overall well with Pantoprazole 40mg for her GERD. I have tried to cut down to 20 mg, but her symptoms were not controlled. Denies any blood in stool.Still has some concerns with her IBS-D. Pt says her symptoms are there since her GB was removed in 1997. Pt has seen GI and had EGD & colonoscopy done with them and they did not recommend any other med for her symptoms. Denies any blood in stool.Pt is f/u with Psych at [place] for her mood problems. Doing overall well. Denies any SI/HI.Pt says she had sleep study done 3-4 yrs ago and it was Neg for JOSELUIS as per pt. Homer Segura MD [address], [place], [address], [employer] 12/27/2024 09:34:37 02/13/2025 text/html ACV: C/o pain over her Lt lower back and buttock area for last 2 weeks. Denies any recent fall/trauma/heavy lifting. Pt has chronic low back pain for last few yrs, but she has not gone for x-rays yet. Denies any incontinence. C/o lower abdominal area bruise that she noticed today. Denies any fall/trauma. Pt is on Mounjaro 15mg once a week shot since last year. Homer Segura MD [address], [place], [address], [employer] 02/13/2025 16:00:00 02/27/2025 text/html Pt is here for f /u on her x-rays and pain. Feeling overall same as before. Denies any problem with meds. Denies any new concern. Pt has done PT last year and it did not help her. Her bruise is almost gone and no more concern with it. C/o pain over her Lt lower back and buttock area for last 2 weeks. Denies any recent fall/trauma/heavy lifting. Pt has chronic low back pain for last few yrs, but she has not gone for x-rays yet. Denies any incontinence. Homer Segura MD [address], [place], [address], [employer] 02/27/2025 12:32:04 03/29/2025 text/html Pt is here for f /u on her lab, meds and chronic conditions. Doing overall well. Denies any problem with meds. Denies any new concern for today. Pt is f/u with [facility] and is getting MRI with them.Pt has been started on Crestor, Zetia and Vascepa and doing well with it. Denies any problems with meds.Pt is doing overall well with Pantoprazole 40mg for her GERD. I have tried to cut down to 20 mg, but her symptoms were not controlled. Denies any blood in stool.Pt has IBS-D symptoms since her GB was removed in 1997. Pt has seen GI and had EGD & colonoscopy done with them and they did not recommend any other med for her symptoms. Denies any blood in stool.Pt is f/u with Psych at [place] for her mood problems. Doing overall well. Denies any SI/HI.Pt says she had sleep study done 3-4 yrs ago and it was Neg for JOSELUIS as per pt. Homer Segura MD [address] [facility], [facility] [address], [place], [address], [place] [facility] [employer] 03/29/2025 09:31:40 OBGyn Episode No OBEpisode recorded.
--- OUTSIDE RECORDS SUMMARY | 2025-04-16 08:03 | XMS_ITS | Clinical Summary ---
Author Organization [facility] Address [address] [place] [address] Care Team Providers Care Independent Agent Music Education Name Role Phone Homer Segura MD Primary Care Provider [phone] Allergies No known active allergies Medications Diclofenac Potassium 25 MG Cap Active allopurinol 100 MG tablet Take 100 mg by mouth daily. 3 02/19/2019 Active aripiprazole 2 MG tablet Active vitamin D2, ergocalciferol, 05138 UNITS capsule Take 50,000 Units by mouth every 7 days. 3 01/25/2019 Active omeprazole 20 MG capsule TK 1 C PO QD B MEALS 0 02/19/2019 Active ranitidine 300 MG tablet Take 300 mg by mouth nightly at bedtime. 0 02/19/2019 Active sertraline 100 MG tablet Take 200 mg by mouth daily. 0 02/19/2019 Active JANUVIA 25 MG Tab Take 25 mg by mouth daily. 3 01/12/2019 Active Encounters Date Type Department Care Team Description 02/13/2025 3:30 PM CDT - 02/13/2025 11:59 PM CDT Hospital Encounter [facility] Diagnostic Imaging [place], [place] [id number] Homer Segura MD Discharge Disposition: Home or Self Care (Routine Discharge) 02/13/2025 Travel from Last 3 Months Social History Tobacco Use Types Packs/Day Years Used Date Smoking Tobacco: Never Smokeless Tobacco: Never Alcohol Use Standard Drinks/Week Comments Yes 0 (1 standard drink = 0.6 oz pur e alcohol) rarely Comments No Sex and Gender Information Value Date Recorded Sex Assigned at Female 02/13/2025 3:30 PM CDT Legal Sex Female 5:50 PM CDT Gender Identity Not on file Sexual Orientation Not on file Last Filed Vital Signs Vital Sign Reading Time Taken Comments Blood Pressure 135/69 03/10/2019 9:04 AM CDT Pulse 90 03/10/2019 9:04 AM CDT Temperature 36.7 C (98.1 F) 03/10/2019 9:04 AM CDT Respiratory Rate 20 03/10/2019 9:04 AM CDT Oxygen Saturation 97% 03/10/2019 9:04 AM CDT Inhaled Oxygen Concentration - - Weight 102.1 kg (225 lb) 03/10/2019 9:04 AM CDT Height 154.9 cm (5' 1) 03/10/2019 9:04 AM CDT Body Mass Index 42.51 03/10/2019 9:04 AM CDT Plan of Treatment Health Maintenance Due Date Last Done Comments Cervical Cancer Screening Pa p Smear (Age 30 to 64) Every 3 Years 1964 Colorectal Cancer Screening Colonoscopy (10 Years) 1964 Annual Physical 1967 Hepatitis C 1982 Cervical Cancer Screening Pa p with HPV Testing (Age 30 to 64) Every 5 Years 1994 Cervical Cancer Screening wi th HPV 1994 Mammogram Screening 2004 Pneumococcal Vaccine: 50+ Years (1 of 1 - PCV) 2014 Zoster Vaccines (1 of 2) 2014 COVID-19 Vaccine (4 - 2023-2 5 season) 2024 08/15/2021, 12/30/2020, 11/27/2020 DTaP, Tdap and Td Vaccines ( 3 - Td or Tdap) 08/24/2033 08/24/2023, 01/23/2013 RSV Immunization or 60+ Years (1 - 1-dose 75+ series) 2039 Meningococcal B Vaccine Aged Out No l onger eligible based on patient's age to complete this topic Meningococcal Vaccine Aged Out No roxi ivana eligible based on patient's age to complete this topic RSV Immunizations Under 20 Months Aged Out No longer eligible b ased on patient's age to complete this topic Procedures Procedure Name Priority Date/Time Associated Diagnosis Comments XR SI JOINTS Routine 02/13/2025 4:08 PM CDT Low back pain, unspecified XR LUMB SP+FLEX+EXT MIN 4V Routine 02/13/2025 4:08 PM CDT Low back pain, unspecified from Last 3 Months Results * XR SI JOINTS (02/13/2025 4:08 PM CDT) Anatomical Region Laterality Modality Pelvis Radiographic Deanna ging 02/14/2025 3:39 AM CDT Impressions 02/14/2025 3:41 AM CDT IMPRESSION: Mild degenerative changes of the bilateral SI joints. Referred By: Interpreted By: Alejo Gallego MD, 02/14/2025 3:39 AM Narrative 02/14/2025 3:41 AM CDT [address] [address] Examination: XR SI JOINTS Exam time: 02/13/2025 4:03 PM Clinical history: Low back pain. Comparison: No comparison. Technique: 2 views of the SI joints. Findings: No fracture or dislocation is identified. There are mild degenerative changes of the bilateral SI joints. No distinct subcortical sclerosis or osseous erosions identified. No destructive bone process is seen. The pubic symphysis appears intact. Hip joint spaces appear preserved. Procedure Note Alejo Gallego MD - 02/14/[address] [address] Examination: XR SI JOINTS Exam time: 02/13/2025 4:03 PM Clinical history: Low back pain. Comparison: No comparison. Technique: 2 views of the SI joints. Findings: No fracture or dislocation is identified. There are mild degenerativechanges of the bilateral SI joints. No distinct subcortical sclerosis orosseous erosions identified. No destructive bone process is seen. Thepubic symphysis appears intact. Hip joint spaces appear preserved. IMPRESSION: Mild degenerative changes of the bilateral SI joints. Referred By: Interpreted By: Alejo Gallego MD, 02/14/2025 3:39 AM Homer Segura MD GENERAL IMAGING Final Result * XR LUMB SP+FLEX+EXT MIN 4V (02/13/2025 4:08 PM CDT) Anatomical Region Laterality Modality Spine Radiographic Deanna ging 02/14/2025 3:41 AM CDT Impressions 02/14/2025 3:43 AM CDT IMPRESSION: 1. No acute osseous abnormality. 2. Multilevel lumbar spondylosis. 3. Slight degenerative grade 1 anterolisthesis of L4 on L5. Referred By: Interpreted By: Alejo Gallego MD, 02/14/2025 3:41 AM Narrative 02/14/2025 3:43 AM CDT [address] [address] Examination: XR LUMB SP+FLEX+EXT MIN 4V Exam time: 02/13/2025 4:03 PM Clinical history: Low back pain. Comparison: No comparison. Technique: 4 views of the lumbar spine. Findings: There is slight degenerative grade 1 anterolisthesis of L4 on L5. No worsening of listhesis with flexion or extension imaging. Vertebral body heights are preserved. Multilevel degenerative disc space narrowing with marginal osteophytes. Multilevel degenerative facet arthropathy. No destructive bone lesion or fracture is identified. Procedure Note Alejo Gallego MD - 02/14/2025 [place] [address] Examination: XR LUMB SP+FLEX+EXT MIN 4V Exam time: 02/13/2025 4:03 PM Clinical history: Low back pain. Comparison: No comparison. Technique: 4 views of the lumbar spine. Findings: There is slight degenerative grade 1 anterolisthesis of L4 on L5. Noworsening of listhesis with flexion or extension imaging. Vertebral bodyheights are preserved. Multilevel degenerative disc space narrowing withmarginal osteophytes. Multilevel degenerative facet arthropathy. Nodestructive bone lesion or fracture is identified. IMPRESSION: 1. No acute osseous abnormality. 2. Multilevel lumbar spondylosis. 3. Slight degenerative grade 1 anterolisthesis of L4 on L5. Referred By: Interpreted By: Alejo Gallego MD, 02/14/2025 3:41 AM Homer Segura MD GENERAL IMAGING Final Result from Last 3 Months Insurance [employer] [facility] Care Teams Independent Agent Music Education Relationship Specialty Start Date End Date Homer Segura MD PCP - General FAMILY PRACTICE 03/10/19
--- OUTSIDE RECORDS SUMMARY | 2025-04-16 08:03 | XMS_ITS | Data Portability ---
Author Organization [facility] Address [address] [facility] [address] [place] [address] Care Team Providers Care Construction Management Instructor Name Role Phone SANJEEV HILL Referring Provider Assessment No assessment recorded. Plan of Treatment Reminders Order Date Submit Date Provider Last Modified By Organization Details Last Modified Time Details Appointments None record ed. Lab None record ed. Referral None record ed. Procedures None record ed. Surgeries None record ed. Imaging None record ed. Medication Orders None record ed. Patient TargetsNo targets recorded. Patient InstructionsNo instructions recorded. Reason for Referral None Reported. Procedures Surgical History Date Name Laterality Status Provider Name and Address Organization Details Recorded Time 08/19/2016 Sleep Study completed Ernst Carmona [facility] 08/20/20 16 14:39:37 Imaging Results None recorded. Procedure Notes None recorded. Medical Equipment None Reported. Medications Name Sig Start Date Stop Date Status Note LastModified by Organization Details LastModified Time sertraline 100 mg tablet active Not Available Not Available No t Available phentermine 30 mg capsule active Not Available Not Available N ot Available diclofenac sodium 75 mg tablet,delayed release active Not Available Not Available Not Available zolpidem 10 mg tablet active Not Available Not Available Not Available aripiprazole 2 mg tablet active Not Available Not Available No t Available Vitals Date Recorded Body height Body weight Body mass index (BMI) Provider Name and Address Organization Details Last Updated DateTime 08/19/2016 152.4 cm 85701.32 g 43 kg/m2 Ernst Carmona [facility] 08/19/2016 15:58:57 Social History None recorded. Functional Status None recorded. Mental Status None recorded. Family History Nothing Reported. Medical History No medical history recorded. Gynecological HistoryNo gynecological history recorded. Obstetrics History GPAL:G 0 P 0 0 0 0 Past Encounters Encounter ID Performer Location Encounter Start Date Encounter Closed Date Diagnosis/Indication Diagnosis SNOMED-CT Code Diagnosis ICD10 Code Diagnosis Note [id number] [facility], [facility] [phone] [facility] [address] [place] [address] 08/19/2016 15:49:06 08/20/2016 14:22:34 Obstructive sleep apnea of adult 5568503427 103 G47.33 Health Concerns Section Related Observation LastModified by Organization Detai ls LastModified Time None Recorded Concern Status LastModified by Organization Details LastModified Time None Recorded Advance Directives Directive None Recorded Payers Insurance Date Sequence Insurance Name Policy Number Policy Barba Covered Member ID Barba Member ID Guarantor Name 08/19/2016 1 [employer] - DOS PRIOR TO 21 - [facility] BENEFITS PLAN Milli Ramirezen [id number] A Milli Raheemicksen 08/05/2016 2 [employer] - DOS PRIOR TO 21 - [facility] BENEFITS [facility] Milli Macielicksen [id number] Milli Clementetoneickslexii Notes Date Note Type Note Provider Name and Address Organization Details Recorded Time 08/19/2016 text/html HST SetupReporte d [email or web address].HST set upDemonstrated to patient how to set up Home Sleep Test Device. The patient was able to return demonstration with out difficulty.;The patient is unable to return the device until the afternoon.; patient will try and return device prior to 4pm; if not she will return after 7pm. Vasile Larson MD, F.C.C.P. I [id number] [facility] [address] [place], [address], [place] [facility] 08/21/2016 07:53:04 OBGyn Episode No OBEpisode recorded.
--- OUTSIDE RECORDS SUMMARY | 2025-04-16 08:03 | XMS_ITS | Referral Summary ---
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
--- OUTSIDE RECORDS SUMMARY | 2025-04-16 08:03 | XMS_ITS | Patient Health Record ---
Author Organization [facility] Address [address] [place], [place] [id number] Care Team Providers Care Coagulating Bath Operator Name Role Phone ASIA TA Unavailable [phone] Reason For Referral No Information Medications Medication SIG (Take, Route, Frequency, Duration) Notes Start Date End Date Status Medrol Dosepak ORAL Medrol DosepakOr iginal MedicationMedrol Dosepak *Reorder from [employer] for eRx and Interaction Alerts* 09/11/2016 Active diclofenac sodium 75 MG Delayed Release Oral Tablet ORAL diclofenac sodium 75 MG Delayed Release Oral TabletOriginal Medicationdiclofenac sodium 75 MG Delayed Release Oral Tablet *Reorder from [employer] for eRx and Interaction Alerts* 07/24/2016 Active Plan Of Treatment No Information Insurance Providers Payer Name Payer Address Payer Phone Subscriber Number Group Number Insured Name Patient Relationship to Insured Coverage Start Date Coverage End Date [facility] [address] [place], [place] [id number] BERNICE LIM Self - patient is the insured
== END 2025-04-16 08:00 | disposition home or self-care (01) ==
PROVIDERS: PCP Family Medicine; Visit Provider Family Medicine
DX: Z13.820 Encounter for screening for osteoporosis (principal); Z78.0 Asymptomatic menopausal state
CPT/HCPCS: 77063; 77067; 77080

== ENCOUNTER 2025-04-16 08:08 | Outpatient (CLI) | payer OTHER, SELFPAY ==
--- NOTE | ~2025-04-16 | MM_ITS ---
EXAMINATION: MM screening [place] BI w yves HISTORY: Screening TECHNIQUE: Craniocaudal and mediolateral oblique 3-D tomosynthesis images were obtained and synthetic 2-D images were generated. CAD analysis was submitted and interpreted. COMPARISON: Comparison to multiple prior studies sequentially, with oldest reviewed study dated 01/21. BREAST PARENCHYMAL COMPOSITION: Not dense: There are scattered areas of fibroglandular density. FINDINGS: There is no evidence of suspicious mass, calcification, or architectural distortion to sugg est malignancy in either breast. There has been no suspicious interval change. IMPRESSION: 1. No mammographic evidence of malignancy. 2. Recommend routine screening mammography in one year. BI-RADS Category 1: Negative Reviewed, dictated and finalized at location A.
--- OUTSIDE RECORDS SUMMARY | 2025-04-16 08:11 | XMS_ITS ---
[...] - Completed eszopiclone 2 MG Oral Tablet [id number] 0:00:00Z - Completed diclofenac sodium 75 MG Vida [...] [Ozempic] - Completed diclofenac sodium 75 MG Ivda yed Release Oral Tablet - Completed - [...] - Completed ezetimibe 10 MG Oral Tablet [id number] :00:00Z - Completed gabapentin 300 MG Oral Capsule 2024 T00:00:00Z - Completed ezetimibe 10 MG Oral Tablet [id number] :00:00Z - Completed diclofenac sodium 75 MG [...] - Completed ezetimibe 10 MG Oral Tablet [id number] :00:00Z - Completed sertraline 100 MG Oral [...] - Completed prednisone 20 MG Oral Tablet [id number] 0:00:00Z - Completed pantoprazole 40 MG Delayed R elease Oral Tablet - Completed ezetimibe 10 MG Oral Tablet [id number] :00:00Z - Completed methocarbamol 500 MG Oral [...] Oral Tablet 2023-08-05 00:00:00Z - Completed nystatin 315120 UNT/ML Topic al Cream - Completed sertraline [...]
== END 2025-04-16 08:09 | disposition home or self-care (01) ==
LOC: ANHIMG 08:09
PROVIDERS: PCP Family Medicine; Visit Provider Nurse Practitioner Obstetrics & Gynecology
DX: Z12.31 Encounter for screening mammogram for malignant neoplasm of breast (principal)
CPT/HCPCS: 77063; 77067